=== PATIENT | male | born 1955 | race Caucasian/White ===

== ENCOUNTER → 2020-03-30 08:16 | Outpatient (CLI) | payer OTHER, SELFPAY ==
[2020-03-30 09:41] LABS: Add Manual Diff / Slide Review NO; Basophils Absolute Auto 100 /uL (0-100); Basophils Percent Auto 1.1 % (0-2); Eosinophils Absolute Auto 200 /uL (0-450); Eosinophils Percent Auto 4.3 % (2-4); Hematocrit 41.9 % (41-53); Hemoglobin 13.8 g/dL (13.5-17.5); Lymphocytes Absolute Auto 1100 /uL (1100-4500); Lymphocytes Percent Auto 21.7 % (25-40); Mean Corpuscular HGB Conc 32.9 % (30-36); Mean Corpuscular Hemoglobin 31.4 PG (26-34); Mean Corpuscular Volume 95.4 fL (80-100); Monocytes Absolute Auto 300 /uL (0-900); Monocytes Percent Auto 5.8 % (3-14); Neutrophils Absolute Auto 3400 /uL (1500-7000); Neutrophils Percent Auto 67.1 % (50-75); Platelet Count 174 X10^3/uL (150-400); Red Blood Cell Count 4.39 X10^6/uL (4.5-5.9); Red Cell Distribution Width 12.5 % (11.6-14.8)
[2020-03-30 09:54] LABS: Hemoglobin A1C% w Est Avg Glu 5.5 % (4.0-6.0)
[2020-03-30 09:56] LABS: Alanine Aminotransferase 47 IU/L (<50); Albumin 4.4 g/dL (3.5-5.0); Albumin Globulin Ratio 1.4 (1.0-2.8); Alkaline Phosphatase 66 U/L (38-126); Aspartate Aminotransferase 35 IU/L (17-59); BUN Creatinine Ratio 32.2 (6-22); Bilirubin Total 0.5 mg/dL (0.2-1.3); Blood Urea Nitrogen 29 mg/dL (9-20); Calcium 9.2 mg/dL (8.4-10.2); Carbon Dioxide 32 mmol/L (22-32); Chloride 103 mmol/L (98-107); Cholesterol 181 mg/dL (140-199); Estimated Glomerular Filt Rate > 60.0 mL/min (>60); Globulin 3.1 g/dL (1.7-4.1); Glucose 91 mg/dL (80-110); HDL Cholesterol 64 mg/dL (40-60); HEMOLYSIS 23 (0-50); Potassium 4.3 mmol/L (3.4-5.1); Sodium 137 mmol/L (137-145); Total Protein 7.5 g/dL (6.3-8.2); Triglycerides 410 mg/dL (35-150)
[2020-03-30 10:14] LABS: C-Reactive Protein Quant < 0.5 mg/dL (<1.0)
[2020-03-30 10:25] LABS: Erythrocyte Sedimentation Rate 6 MM/HR (0-15)
[2020-03-30 10:28] LABS: Prostate Specific Antigen Scrn 1.49 ng/mL (0.1-4.0)
[2020-03-30 10:31] LABS: TSH w/ Reflex to FT4 2.09 uIU/mL (0.47-4.68)
== END ==
PROVIDERS: PCP Physician Assistant; Referring Provider Physician Assistant; Visit Provider Physician Assistant
DX: I10 Essential (primary) hypertension (principal); E78.2 Mixed hyperlipidemia; R63.4 Abnormal weight loss; Z12.5 Encounter for screening for malignant neoplasm of prostate
CPT/HCPCS: 36415; 80053; 80061; 83036; 84443; 85025; 85651; 86140; G0103

== ENCOUNTER → 2020-05-18 15:21 | Outpatient (CLI) | payer OTHER, SELFPAY ==
[2020-05-18] MEDS: COVID-19 VACC #1, MRNA(MOD) 100 MCG/0.5 ML VIAL IM (15:24)
== END ==
PROVIDERS: PCP Physician Assistant; Visit Provider Internal Medicine
DX: Z23 Encounter for immunization (principal)
CPT/HCPCS: 0011A; 91301

== ENCOUNTER → 2020-06-15 11:16 | Outpatient (CLI) | payer OTHER, SELFPAY ==
[2020-06-15] MEDS: COVID-19 VACC #2, MRNA(MOD) 100 MCG/0.5 ML VIAL IM (11:20)
== END ==
PROVIDERS: PCP Physician Assistant; Visit Provider Internal Medicine
DX: Z23 Encounter for immunization (principal)
CPT/HCPCS: 0012A; 91301

== ENCOUNTER → 2020-07-21 08:05 | Outpatient (CLI) | payer OTHER, SELFPAY ==
[2020-07-21 08:46] LABS: Add Manual Diff / Slide Review NO; Basophils Absolute Auto 0 /uL (0-100); Basophils Percent Auto 1.2 % (0-2); Eosinophils Absolute Auto 200 /uL (0-450); Eosinophils Percent Auto 4.7 % (2-4); Hematocrit 40.7 % (41-53); Hemoglobin 13.6 g/dL (13.5-17.5); Lymphocytes Absolute Auto 800 /uL (1100-4500); Lymphocytes Percent Auto 20.8 % (25-40); Mean Corpuscular HGB Conc 33.5 % (30-36); Mean Corpuscular Hemoglobin 31.9 PG (26-34); Mean Corpuscular Volume 95.2 fL (80-100); Monocytes Absolute Auto 300 /uL (0-900); Monocytes Percent Auto 7.3 % (3-14); Neutrophils Absolute Auto 2700 /uL (1500-7000); Platelet Count 144 X10^3/uL (150-400); Red Blood Cell Count 4.27 X10^6/uL (4.5-5.9); Red Cell Distribution Width 12.8 % (11.6-14.8)
[2020-07-21 09:08] LABS: Alanine Aminotransferase 35 IU/L (<50); Albumin 4.2 g/dL (3.5-5.0); Albumin Globulin Ratio 1.6 (1.0-2.8); Alkaline Phosphatase 61 U/L (38-126); Aspartate Aminotransferase 33 IU/L (17-59); Bilirubin Total 1.3 mg/dL (0.2-1.3); Blood Urea Nitrogen 21 mg/dL (9-20); Calcium 9.7 mg/dL (8.4-10.2); Carbon Dioxide 30 mmol/L (22-32); Chloride 101 mmol/L (98-107); Cholesterol 139 mg/dL (140-199); Estimated Glomerular Filt Rate > 60.0 mL/min (>60); Globulin 2.7 g/dL (1.7-4.1); Glucose 90 mg/dL (80-110); HDL Cholesterol 92 mg/dL (40-60); HEMOLYSIS < 15 (0-50); LDL Cholesterol Calculated 29 mg/dL (<100); Potassium 4.6 mmol/L (3.4-5.1); Sodium 137 mmol/L (137-145); Total Protein 6.9 g/dL (6.3-8.2); Triglycerides 91 mg/dL (35-150)
== END ==
PROVIDERS: PCP Physician Assistant; Referring Provider Physician Assistant; Visit Provider Physician Assistant
DX: E78.2 Mixed hyperlipidemia (principal); N40.1 Benign prostatic hyperplasia with lower urinary tract symptoms
CPT/HCPCS: 36415; 80053; 80061; 85025

== ENCOUNTER 2020-08-04 09:56 | Emergency (ER) | payer OTHER, SELFPAY ==
[2020-08-04 10:08] VITALS: BP 171/91; PULSE 74; RESP 16; TEMP 36.9; O2SAT 99
[2020-08-04] MEDS: KETOROLAC 30 MG/ML VIAL 15 MG IV (10:16)
[2020-08-04] MEDS: SODIUM CHLORIDE 0.9% 1,000 ML 1000 ML IV (10:16)
[2020-08-04] MEDS: ONDANSETRON 4 MG/2 ML INJ IV (10:16)
--- NOTE | 2020-08-04 10:29 | DI.CT.S_ITS ---
PROCEDURE: CT KIDNEY URETER BLADDER (KUB) INDICATIONS: RLQ and R flank colic type pain, ? stone TECHNIQUE: Axial sections were acquired from the lung bases to the pubic symphysis. Coronal and sagittal reformats were performed. For radiation dose reduction, the following was used: automated exposure control, adjustment of mA and/or kV according to patient size. COMPARISON: None. FINDINGS: Image quality: Excellent. Lung bases: Unremarkable. Heart: No significant findings. URINARY: Right Kidney: Mild hydronephrosis. No additional kidney stones. Right Ureter: Calculus adjacent to the right UVJ measuring 0.2 cm, (2/). Mild hydroureter. Left Kidney: Tiny nonobstructing mid left kidney stone. Left Ureter: No hydroureter. Bladder: Normal wall thickness. ABDOMEN: Liver: Benign cysts. Gallbladder: Unremarkable. Biliary ducts: Unremarkable. Pancreas: Unremarkable. Spleen: Unremarkable. Adrenal Glands: Unremarkable. Stomach and Bowel: Stomach, small bowel loops, and colon are unremarkable. Peritoneum: No abnormal intraperitoneal fluid. No free air. Ventral Wall: No hernia. Abdominal Nodes: No enlarged retroperitoneal or mesenteric lymph nodes. Vessels: Aorta and inferior vena cava are normal in size. Moderate calcified plaque. PELVIS: Pelvic Organs: Unremarkable. Pelvic Nodes: Unremarkable. Miscellaneous: Question of small fat containing inguinal hernias. Bones: Unremarkable. IMPRESSION: 1. Right UVJ calculus measuring 0.2 cm which appears to be passing into the urinary bladder. Mild right hydroureteronephrosis. 2. Additional punctate nonobstructing left kidney stone. Dictated by: Jabier Jones M.D. on 08/04/2020 at 11:14 Approved by: Jabier Jones M.D. on 08/04/2020 at 11:20
--- NOTE | 2020-08-04 10:30 | ED.ABDPAIN ---
HPI - Abdominal Pain General Chief Complaint: Abdominal Pain Stated Complaint: pain in lower right abd Time Seen by Provider: 08/04/20 10:07 Source: patient Mode of arrival: Ambulatory Limitations: no limitations History of Present Illness HPI narrative: 64-year-old gentleman with a history of hypertension, hyperlipidemia and BPH presents with acute onset right lower quadrant/ right flank pain. He was in his usual state of excellent health without any fevers, cough, chills, abdominal pain, constipation, vomiting, diarrhea, palpitations, cough or chest pain. When he awoke this morning he was doing well for the 1st half an hour so and then noted severe pain in the right flank right lower quadrant that has been waxing and waning over the course of the morning from mild to some of the worst pain he has experienced in his life. At the peaks he is nauseated but has not actually vomited. He has no prior history of kidney stones. Current medications include hydrochlorothiazide/ lisinopril, a statin and Flomax. Related Data Home Medications Medication Instructions Recorded Confirmed atorvastatin 40 mg PO DAILY 08/04/20 08/04/20 losartan-hydrochlorothiazide 1 tab PO QAM 08/04/20 08/04/20 tamsulosin 0.8 mg PO DAILY 08/04/20 08/04/20 Previous Rx's Medication Instructions Recorded oxycodone-acetaminophen 1 tab PO Q6H PRN 5 Days #14 tab 08/04/20 Allergies Allergy/AdvReac Type Severity Reaction Status Date / Time No Known Drug Allergies Allergy Verified 08/04/20 10:15 Review of Systems Review of Systems Narrative: Remainder of complete review of systems is otherwise unremarkable except for that included in the HPI. Patient History Medical History (Updated 08/04/20 @ 12:24 by Izzy Maier MD) BPH (benign prostatic hyperplasia) Hyperlipidemia Hypertension Social History Smoking Status: Never smoker Smoking Status: Never smoker alcohol intake frequency: 0-2 drinks per day Substance Use Type: does not use Exam Narrative Exam Narrative: General: Healthy appearing, in no acute distress. Able to give a complete and coherent history. Well-nourished well-developed HEENT: Moist mucous membranes, normal sclera with reactive pupils, Respiratory: Lungs are clear to auscultation, no wheezing no rales no rhonchi. Full and symmetrical air movement Cardiac: Regular rate and rhythm no murmurs no bruits Abdomen: Soft, nontender, good bowel tones, no flank pain Skin: Warm and dry, no rashes Neurologic: Grossly neurologically intact with no obvious asymmetries or abnormalities Extremities: No trauma, well perfused Psych: Cooperative, appropriate insight and affect Initial Vital Signs Initial Vital Signs: Vital Signs Temperature 98.4 F 08/04/20 10:08 Pulse Rate 74 08/04/20 10:08 Respiratory Rate 16 08/04/20 10:08 Blood Pressure 171/91 H 08/04/20 10:08 Pulse Oximetry 99 08/04/20 10:08 Course Orders Ordered: ED Orders 08/04/20 10:04 Complete Blood Count AUTO DIFF Stat Comprehensive Metabolic Panel Stat 08/04/20 10:29 CT kidney ureter bladder (KUB) Stat 08/04/20 11:06 Urine Microscopic Stat Discontinued Medications Sodium Chloride (Normal Saline 0.9%) 1,000 mls @ 1,000 mls/hr IV BOLUS ONE Stop: 08/04/20 11:06 Last Infusion: 08/04/20 11:59 Dose: 0 mls/hr Documented by: Admin: 08/04/20 10:16 Dose: 1,000 mls/hr Documented by: CHEMO Ketorolac Tromethamine (Ketorolac 30 Mg/Ml Vial) 15 mg IV NOW ONE Stop: 08/04/20 10:08 Last Admin: 08/04/20 10:16 Dose: 15 mg Documented by: CHEMO Ondansetron HCl (Ondansetron 4 Mg/2 Ml Inj) 4 mg IV NOW ONE Stop: 08/04/20 10:08 Last Admin: 08/04/20 10:16 Dose: 4 mg Documented by: CHEMO Vital Signs Vital signs: Vital Signs - 8 hr 08/04/20 11:39 08/04/20 12:00 Pulse Rate 59 L 58 L Respiratory Rate 16 Blood Pressure 137/77 Pulse Oximetry 100 100 MDM - Abdominal Pain Medical Records Attestation: I reviewed the patient's medical records. Lab Data Attestation: I reviewed the patient's lab results. Result diagrams: 08/04/20 10:04 08/04/20 10:04 Labs: Lab Results 08/04/20 08/04/20 08/04/20 Range/Units 10:04 10:04 11:06 WBC 7.7 (4.5-11.0) X10^3/uL RBC 4.35 L (4.5-5.9) X10^6/uL Hgb 13.9 (13.5-17.5) g/dL Hct 41.5 (41-53) % MCV 95.4 (80-100) fL MCH 32.1 (26-34) PG MCHC 33.6 (30-36) % RDW 13.0 (11.6-14.8) % Plt Count 157 (150-400) X10^3/uL Neut % (Auto) 85.4 H (50-75) % Lymph % (Auto) 8.9 L (25-40) % Lassen % (Auto) 4.7 (3-14) % Eos % (Auto) 0.6 L (2-4) % Baso % (Auto) 0.4 (0-2) % Neut # (Auto) 6600 (1790-9539) /uL Lymph # (Auto) 700 L (4974-1712) /uL Lassen # (Auto) 400 (0-900) /uL Eos # (Auto) 0 (0-450) /uL Baso # (Auto) 0 (0-100) /uL Sodium 137 (137-145) mmol/L Potassium 4.2 (3.4-5.1) mmol/L Chloride 102 (98-107) mmol/L Carbon Dioxide 28 (22-32) mmol/L BUN 26 H (9-20) mg/dL Creatinine 1.18 (0.66-1.25) mg/dL Estimated GFR > 60.0 (>60) mL/min BUN/Creatinine Ratio 22.0 (6-22) Glucose 126 H (80-110) mg/dL Calcium 9.8 (8.4-10.2) mg/dL Total Bilirubin 1.2 (0.2-1.3) mg/dL AST 36 (17-59) IU/L ALT 46 (<50) IU/L Alkaline Phosphatase 58 (38-126) U/L Total Protein 7.3 (6.3-8.2) g/dL Albumin 4.4 (3.5-5.0) g/dL Globulin 2.9 (1.7-4.1) g/dL Albumin/Globulin Ratio 1.5 (1.0-2.8) Urine RBC 1-5/hpf (0-5/HPF) Urine WBC 0-1/hpf (0-5/HPF) Uric Acid Crystals Moderate H (None) Urine Bacteria Occasional (0-1) (None) Ur Culture Indicated? Cult not indicated Point of care testing: Urine Dip Bedside Urine Glucose Negative Bedside Urine Bilirubin - Negative Bedside Urine Ketone - Negative Urine Specific [place] 1.030 Bedside Urine Occult Blood +/- Bedside Urine pH 6.0 Bedside Urine Protein - Negative Bedside Urine Urobilinogen - Negative Bedside Urine Nitrite - Negative Imaging Data CT scan - abdomen/pelvis: Radiologist's Impression: FINDINGS: Image quality: Excellent. Lung bases: Unremarkable. Heart: No significant findings. URINARY: Right Kidney: Mild hydronephrosis. No additional kidney stones. Right Ureter: Calculus adjacent to the right UVJ measuring 0.2 cm, (2/74). Mild hydroureter. Left Kidney: Tiny nonobstructing mid left kidney stone. Left Ureter: No hydroureter. Bladder: Normal wall thickness. ABDOMEN: Liver: Benign cysts. Gallbladder: Unremarkable. Biliary ducts: Unremarkable. Pancreas: Unremarkable. Spleen: Unremarkable. Adrenal Glands: Unremarkable. Stomach and Bowel: Stomach, small bowel loops, and colon are unremarkable. Peritoneum: No abnormal intraperitoneal fluid. No free air. Ventral Wall: No hernia. Abdominal Nodes: No enlarged retroperitoneal or mesenteric lymph nodes. Vessels: Aorta and inferior vena cava are normal in size. Moderate calcified plaque. PELVIS: Pelvic Organs: Unremarkable. Pelvic Nodes: Unremarkable. Miscellaneous: Question of small fat containing inguinal hernias. Bones: Unremarkable. IMPRESSION: 1. Right UVJ calculus measuring 0.2 cm which appears to be passing into the urinary bladder. Mild right hydroureteronephrosis. 2. Additional punctate nonobstructing left kidney stone. Dictated by: Jabier Jones M.D. on 08/04/2020 at 11:14 MDM Narrative Medical decision making narrative: 64-year-old gentleman who presents with acute onset of colicky right lower quadrant pain. Labs reassuring. CT KUB does suggest a 2 mm right UVJ stone. Pain was easily controlled with Toradol in the emergency department. There is no evidence of appendicitis, pyelonephritis, obstruction, renal impairment or additional reason for hospitalization this time. He is counseled regarding nephrolithiasis. He is already on Flomax will have him continue this. He is safe for home discharge Discharge Plan Departure Patient Disposition: Home Clinical Impression: Ureterolithiasis Instructions: DI for Kidney Stones Activity Restrictions/Additional Instructions: Thank you for coming in today you do have a kidney stone that is causing her problems. It is 2mm in size. It is about to drop into your bladder on the CT scan if you do have any further pain it would be appropriate to use 400 mg of ibuprofen (2 [id number] pills) and 1 Tylenol every 6 hours. For severe pain using 2 ibuprofen and 1 Percocet can be helpful. It is not uncommon to have a deep ache from some of the irritation in the ureter as the stone was passing through. This should improve over the next 24-48 hours if you have any new symptoms, fevers or recurrent pain that can not be controlled with medication at home, please return to the ER Prescriptions: New oxycodone-acetaminophen 5-325 mg tablet 1 tab PO Q6H PRN (Reason: pain) 5 Days Qty: 14 RF: 0 No Action atorvastatin 40 mg tablet 40 mg PO DAILY RF: 0 tamsulosin 0.4 mg capsule 0.8 mg PO DAILY RF: 0 losartan-hydrochlorothiazide 100-12.5 mg tablet 1 tab PO QAM RF: 0 Referrals: Jada Levin PA-C [Primary Care Provider] -
[2020-08-04 10:37] LABS: Add Manual Diff / Slide Review NO; Basophils Absolute Auto 0 /uL (0-100); Basophils Percent Auto 0.4 % (0-2); Eosinophils Absolute Auto 0 /uL (0-450); Eosinophils Percent Auto 0.6 % (2-4); Hematocrit 41.5 % (41-53); Hemoglobin 13.9 g/dL (13.5-17.5); Lymphocytes Absolute Auto 700 /uL (1100-4500); Lymphocytes Percent Auto 8.9 % (25-40); Mean Corpuscular HGB Conc 33.6 % (30-36); Mean Corpuscular Hemoglobin 32.1 PG (26-34); Mean Corpuscular Volume 95.4 fL (80-100); Monocytes Absolute Auto 400 /uL (0-900); Monocytes Percent Auto 4.7 % (3-14); Neutrophils Absolute Auto 6600 /uL (1500-7000); Neutrophils Percent Auto 85.4 % (50-75); Platelet Count 157 X10^3/uL (150-400); Red Blood Cell Count 4.35 X10^6/uL (4.5-5.9); White Blood Cell Count 7.7 X10^3/uL (4.5-11.0)
[2020-08-04 10:58] LABS: Alanine Aminotransferase 46 IU/L (<50); Albumin 4.4 g/dL (3.5-5.0); Albumin Globulin Ratio 1.5 (1.0-2.8); Alkaline Phosphatase 58 U/L (38-126); Aspartate Aminotransferase 36 IU/L (17-59); Bilirubin Total 1.2 mg/dL (0.2-1.3); Blood Urea Nitrogen 26 mg/dL (9-20); Calcium 9.8 mg/dL (8.4-10.2); Carbon Dioxide 28 mmol/L (22-32); Chloride 102 mmol/L (98-107); Estimated Glomerular Filt Rate > 60.0 mL/min (>60); Globulin 2.9 g/dL (1.7-4.1); Glucose 126 mg/dL (80-110); HEMOLYSIS < 15 (0-50); Potassium 4.2 mmol/L (3.4-5.1); Sodium 137 mmol/L (137-145); Total Protein 7.3 g/dL (6.3-8.2)
[2020-08-04 11:39] VITALS: PULSE 59; O2SAT 100
[2020-08-04 11:51] LABS: RBC Urine 1-5/HPF (0-5/HPF); WBC Urine 0-1/HPF (0-5/HPF)
[2020-08-04 11:52] LABS: Bacteria Urine Occasional (0-1); Culture Indicated Urine Cult Not Indicated; Uric Acid Crystals Urine Moderate
[2020-08-04 12:00] VITALS: BP 137/77; PULSE 58; RESP 16; O2SAT 100
== END 2020-08-04 12:43 | disposition home or self-care (01) ==
PROVIDERS: Emergency Provider Emergency Medicine; PCP Physician Assistant
DX: N20.1 Calculus of ureter (principal); R11.0 Nausea
CPT/HCPCS: 36415; 74176; 80053; 81003; 81015; 85025; 96361; 96374; 96375; 99284; J1885; J2405

== ENCOUNTER → 2020-08-23 08:53 | Outpatient (CLI) | payer OTHER, SELFPAY ==
[2020-08-23 09:35] LABS: Add Manual Diff / Slide Review NO; Basophils Absolute Auto 0 /uL (0-100); Eosinophils Absolute Auto 200 /uL (0-450); Eosinophils Percent Auto 4.3 % (2-4); Hematocrit 39.1 % (41-53); Hemoglobin 13.3 g/dL (13.5-17.5); Lymphocytes Absolute Auto 900 /uL (1100-4500); Mean Corpuscular Hemoglobin 32.5 PG (26-34); Mean Corpuscular Volume 95.6 fL (80-100); Monocytes Absolute Auto 300 /uL (0-900); Neutrophils Absolute Auto 2800 /uL (1500-7000); Neutrophils Percent Auto 66.7 % (50-75); Platelet Count 142 X10^3/uL (150-400); Red Blood Cell Count 4.09 X10^6/uL (4.5-5.9); Red Cell Distribution Width 12.9 % (11.6-14.8); White Blood Cell Count 4.2 X10^3/uL (4.5-11.0)
== END ==
PROVIDERS: PCP Physician Assistant; Referring Provider Physician Assistant; Visit Provider Physician Assistant
DX: D72.819 Decreased white blood cell count, unspecified (principal)
CPT/HCPCS: 36415; 85025

== ENCOUNTER → 2020-11-27 14:36 | Outpatient (CLI) | payer OTHER, SELFPAY ==
[2020-11-27 18:24] LABS: COVID19 -Nasal RAPID Negative (Negative)
== END ==
PROVIDERS: PCP Physician Assistant; Visit Provider Nurse Practitioner Family
DX: Z20.822 Contact with and (suspected) exposure to COVID-19 (principal); Z01.812 Encounter for preprocedural laboratory examination
CPT/HCPCS: 87635

== ENCOUNTER 2020-11-28 06:48 | Day surgery (SDC) | payer OTHER, SELFPAY ==
--- NOTE | 2020-11-28 | PATH_ITS ---
[facility] Accession Number: [id number] . 01 Material submitted: . PART A: cecum - CECAL COLON POLYP PART B: colon - RANDOM COLON . 02 Diagnosis: A. Cecal Polyp, Biopsy: Tubular adenoma. . B. Random Colon, Biopsies: Colonic mucosa with no diagnostic abnormality. Negative for active, chronic, and microscopic colitis. Negative for dysplasia and malignancy. . MRV 11/30/2020 1138 Local . 02 Electronically signed: . Anshu May MD, PhD, Pathologist NPI- [id number] . 01 Gross description: . Part A: CECAL COLON POLYP: Received in formalin is 1 fragment(s) of shaw, soft tissue measuring 0.6 x 0.4 x 0.2 cm submitted entirely in 1 cassette(s) Part B: RANDOM COLON: Received in formalin are 4 fragment(s) of shaw, soft tissue measuring 0.4 x 0.1 x 0.1 cm to 0.3 x 0.2 x 0.1 cm submitted entirely in 1 cassette(s) /MILKA 11/29/2020 0501 Local . 02 Pathologist provided ICD-10: R19.7, D12.0 . 02 CPT . 879640, 514042 Performed at: 01 [facility] [address], [place], [place] [id number] MD Marshal Perez MD Phone: [phone] Performed at: 02 [facility] [address] [place], [place] [id number] MD Brii Fernando MD Phone: [phone]
[2020-11-28] MEDS: SODIUM CHLORIDE 0.9% 1,000 ML 84 ML IV (07:11)
[2020-11-28 07:18] VITALS: BP 148/83; PULSE 70; RESP 16; TEMP 36.4; O2SAT 100; BMI 23.0
--- NOTE | 2020-11-28 08:02 | PM.HP.1 ---
History of Present Illness History of Present Illness Date Patient Seen: 11/28/20 Time Patient Seen: 08:02 Chief complaint: DX COLONOSCOPY Narrative: I reviewed my note from November 07 no changes. Patient History Medical History Acne Allergies Anxiety and depression (~1984) Asthma BPH (benign prostatic hyperplasia) Carpal tunnel syndrome (~1994) Chicken pox (~1986) Factor V Leiden Gastric ulcer Hyperlipidemia Hypertension Kidney stones (~2020) Mumps Tinnitus (~1994) Surgical History Anesthesia History of hernia repair History of tonsillectomy Family & Social History Family History Mother Lung cancer MVP (mitral valve prolapse) Grandfather History of heart disease Grandmother Cancer Grandmother Cancer Social History: household members spouse Tobacco & Substance use: Smoking Status Never smoker alcohol intake frequency 0-2 drinks per day Substance Use Type does not use Meds Home Medications and Allergies Home Medications Medication Instructions Recorded Confirmed Type atorvastatin 40 mg tablet 40 mg PO DAILY 08/04/20 08/04/20 History losartan 100 1 tab PO QAM 08/04/20 08/04/20 History mg-hydrochlorothiazide 12.5 mg tablet tamsulosin 0.4 mg capsule 0.8 mg PO DAILY 08/04/20 08/04/20 History Allergies Allergy/AdvReac Type Severity Reaction Status Date / Time No Known Drug Allergies Allergy Verified 11/28/20 07:16 Review of Systems Review of Systems ROS: Yes All systems reviewed with the patient and are negative except as otherwise documented Exam Vital Signs (past 8 hours): - 11/28/20 07:18 Temperature 97.6 F Pulse Rate 70 Respiratory Rate 16 Blood Pressure 148/83 H Pulse Oximetry 100 Oxygen Delivery Method Room Air Const General: cooperative and comfortable Orientation: alert HENMT Head: normocephalic Ears: external ears normal Nose: external nose normal Face and sinus: normal facial exam Mouth: oral mucosae normal Eyes General: appearance normal, both eyes and all related structures Neck Neck: normal visual inspection Chest Chest: normal inspection of the chest Resp Effort & Inspection: normal respiratory effort Auscultation: clear to auscultation bilaterally Cardio Rate: regular rate Rhythm: regular rhythm Heart Sounds: no murmurs GI Inspection: normal to inspection Palpation: soft and No tender Auscultation: normal bowel sounds Skin General: no rashes or lesions noted and No jaundice Neuro General: patient alert and moves all extremities Cognition: normal cognition Speech: speech normal Extrem General: no pedal edema Psych Appearance: grossly normal Assessment & Plan Assessment & Plan narrative: Indicated for colon cancer screening but has longstanding diarrhea. Colonoscopy with random biopsies is planned for today. Time Spent With Patient Critical Care time: I spent a total of [] minutes of critical care time on this patient's care today; this time is exclusive of procedural time.
--- NOTE | 2020-11-28 08:03 | PM.PREOP ---
Pre-operative Note COVID-19 COVID-19 status: Negative Result date/Date tested (Pos, Neg/Pending): 11/27/20 Interval Note History & Physical reviewed/Exam performed by Physician: Yes Changes to H&P: No ASA Class (for procedural sedation): II
--- NOTE | 2020-11-28 08:30 | PM.OP.COLON ---
Operative Date/Time/Diagnoses Date of procedure: 11/28/20 Time of procedure: 08:30 Pre-op diagnosis: Indicated for colon cancer screening. Chronic diarrhea. Post-op diagnosis: same Procedure & Clinicians Study performed: Colonoscopy with hot snare polypectomy and biopsies Same procedure as scheduled: Yes Indications: Indicated for colon cancer screening. Patient has chronic diarrhea. Surgeon: Alvin Reed Procedure Notes SCOAP/Timeout: Done Procedure in detail: After the risks and benefits were explained, written and verbal informed consent was obtained. The patient was brought into the procedure room and placed into the left lateral decubitus position. Please see nurse cross tie tram loader notes for sedation details. Digital rectal examination was accomplished. The scope was introduced into the patient and advanced under direct visualization to the cecum as identified by the appendiceal orifice and ileocecal valve. The scope was slowly withdrawn to carefully examine the mucosa for any defects or lesions. Comprehensive imaging was accomplished throughout the rectum including the dentate line. The colon was decompressed, the scope was then removed from the patient who tolerated the procedure well. Bowel prep adequate Adult colonoscope Scope withdrawal time: 13 minutes Sedation minutes: 19 Specimen(s): none sent Complications: none Impression: There was evidence of diverticulosis in the right colon all throughout the ascending. In the cecum there was a sessile perhaps 6 mm polyp removed with hot snare. The terminal ileum was interrogated and appeared visually normal. I did not see any evidence of colitis or proctitis. Random colon biopsies were taken for exclusion of microscopic disease. Grade 1 internal hemorrhoids noted. Endoscopic diagnosis 1. Colon polyp 2. Diverticulosis 3. Grade 1 hemorrhoids Post-procedure Plan for aftercare: 1. Await histopathology 2. Repeat colonoscopy in 5 years if adenomatous features are confirmed. Disposition: PACU
[2020-11-28 08:32] VITALS: BP 114/71; PULSE 79; RESP 13; TEMP 36.3; O2SAT 98
[2020-11-28 08:38] VITALS: BP 104/62; PULSE 64; RESP 14; TEMP 36.3; O2SAT 100
[2020-11-28 08:45] VITALS: BP 119/80; PULSE 87; RESP 14; TEMP 36.2; O2SAT 99
[2020-11-28 08:49] VITALS: BP 123/78; PULSE 80; RESP 14; TEMP 36.2; O2SAT 100
[2020-11-28 09:03] VITALS: BP 124/76; PULSE 63; RESP 14; TEMP 35.9; O2SAT 100
== END 2020-11-28 09:11 | disposition home or self-care (01) ==
PROVIDERS: PCP Physician Assistant; Referring Provider Internal Medicine Gastroenterology; Visit Provider Internal Medicine Gastroenterology
PROC: 0DJD8ZZ Inspection of Lower Intestinal Tract, Via Natural or Artificial Opening Endoscopic (ICD-10-PCS; CPT 45378; principal; 2020-11-28 08:00)
DX: Z12.11 Encounter for screening for malignant neoplasm of colon (principal); K52.9 Noninfective gastroenteritis and colitis, unspecified; I10 Essential (primary) hypertension; E78.00 Pure hypercholesterolemia, unspecified; J45.909 Unspecified asthma, uncomplicated; D68.51 Activated protein C resistance; K57.30 Diverticulosis of large intestine without perforation or abscess without bleeding; K64.0 First degree hemorrhoids; D12.0 Benign neoplasm of cecum
CPT/HCPCS: 45385; 45380; J2704

== ENCOUNTER → 2021-04-05 08:13 | Outpatient (CLI) | payer MEDICARE, SELFPAY ==
[2021-04-05 09:51] LABS: Alanine Aminotransferase 37 IU/L (<50); Albumin 4.3 g/dL (3.5-5.0); Albumin Globulin Ratio 1.7 (1.0-2.8); Alkaline Phosphatase 55 U/L (38-126); Aspartate Aminotransferase 31 IU/L (17-59); BUN Creatinine Ratio 21.3 (6-22); Bilirubin Total 0.9 mg/dL (0.2-1.3); Blood Urea Nitrogen 20 mg/dL (9-20); Calcium 9.6 mg/dL (8.4-10.2); Carbon Dioxide 32 mmol/L (22-32); Chloride 104 mmol/L (98-107); Cholesterol 169 mg/dL (140-199); Estimated Glomerular Filt Rate > 60.0 mL/min (>60); Globulin 2.6 g/dL (1.7-4.1); Glucose 92 mg/dL (80-110); HDL Cholesterol 78 mg/dL (40-60); HEMOLYSIS < 15 (0-50); LDL Cholesterol Calculated 55 mg/dL (<100); Potassium 4.4 mmol/L (3.4-5.1); Sodium 140 mmol/L (137-145); Total Protein 6.9 g/dL (6.3-8.2); Triglycerides 182 mg/dL (35-150)
[2021-04-05 10:20] LABS: Prostate Specific Antigen Scrn 1.06 ng/mL (0.1-4.0)
== END ==
PROVIDERS: PCP Internal Medicine; Referring Provider Internal Medicine; Visit Provider Internal Medicine
DX: E78.5 Hyperlipidemia, unspecified (principal); Z12.5 Encounter for screening for malignant neoplasm of prostate; I10 Essential (primary) hypertension
CPT/HCPCS: 36415; 80053; 80061; G0103

== ENCOUNTER → 2021-10-01 08:26 | Outpatient (CLI) | payer MEDICARE, SELFPAY ==
[2021-10-01 09:28] LABS: Alanine Aminotransferase 30 IU/L (<50); Albumin 4.2 g/dL (3.5-5.0); Albumin Globulin Ratio 1.6 (1.0-2.8); Alkaline Phosphatase 66 U/L (38-126); Aspartate Aminotransferase 27 IU/L (17-59); BUN Creatinine Ratio 22.7 (6-22); Bilirubin Total 0.8 mg/dL (0.2-1.3); Blood Urea Nitrogen 22 mg/dL (9-20); Calcium 9.1 mg/dL (8.4-10.2); Carbon Dioxide 29 mmol/L (22-32); Chloride 103 mmol/L (98-107); Cholesterol 174 mg/dL (140-199); Estimated Glomerular Filt Rate > 60 mL/min (>60); Globulin 2.6 g/dL (1.7-4.1); Glucose 95 mg/dL (80-110); HDL Cholesterol 85 mg/dL (40-60); HEMOLYSIS < 15 (0-50); LDL Cholesterol Calculated 51 mg/dL (<100); Potassium 4.3 mmol/L (3.4-5.1); Sodium 138 mmol/L (137-145); Total Protein 6.8 g/dL (6.3-8.2); Triglycerides 188 mg/dL (35-150)
== END ==
PROVIDERS: PCP Internal Medicine; Referring Provider Internal Medicine; Visit Provider Internal Medicine
DX: I10 Essential (primary) hypertension (principal); E78.2 Mixed hyperlipidemia
CPT/HCPCS: 36415; 80053; 80061

== ENCOUNTER 2021-10-10 17:00 | Emergency (ER) | payer MEDICARE, SELFPAY ==
[2021-10-10] VITALS (17 sets, daily range): BP systolic 134–171; BP diastolic 74–94; PULSE 55–80; RESP 16–18; TEMP 36.6–36.7; O2SAT 99–100; BMI 23.3
--- NOTE | 2021-10-10 18:38 | DI.CT.S_ITS ---
PROCEDURE: CT KIDNEY URETER BLADDER (KUB) INDICATIONS: RLQ pain radiating into back. Hx stones TECHNIQUE: Axial sections were acquired from the lung bases to the pubic symphysis. Coronal and sagittal reformats were performed. For radiation dose reduction, the following was used: automated exposure control, adjustment of mA and/or kV according to patient size. COMPARISON: [facility], CT, CT KIDNEY URETER BLADDER (KUB), 08/04/2020, 10:58. FINDINGS: Image quality: Excellent. Lung bases: Lung bases are clear. Heart: No significant findings. URINARY: Right Kidney: There is mild-moderate right hydronephrosis with associated perinephric stranding secondary to obstructing 2 mm distal right ureteral stone. Right Ureter: There is mild right hydroureter and right periureteral stranding secondary to a 2 mm distal right ureteral stone. Left Kidney: Redemonstration of tiny punctate 1 mm nonobstructing left renal stone. No left-sided hydronephrosis. No perinephric stranding. Left Ureter: No hydroureter or periureteral stranding. No ureteral stone. Bladder: Normal wall thickness. No stones. ABDOMEN: Liver: Unremarkable. Stable hepatic hypodensity in the posterior right hepatic lobe likely representing a cyst. Gallbladder: Unremarkable. Biliary ducts: Unremarkable. Pancreas: Unremarkable. Spleen: Unremarkable. Adrenal Glands: Unremarkable. Stomach and Bowel: Stomach, small bowel loops, and colon are unremarkable. Peritoneum: No abnormal intraperitoneal fluid. No free air. Ventral Wall: No hernia. Abdominal Nodes: No enlarged retroperitoneal or mesenteric lymph nodes. Vessels: Aorta and inferior vena cava are normal in size. PELVIS: Pelvic Organs: Unremarkable. Pelvic Nodes: Unremarkable. Miscellaneous: Small fat containing bilateral inguinal hernias without acute inflammation. Bones:No acute vertebral body compression fractures. Multilevel spondylitic changes throughout the imaged spine. No suspicious osseous lesions. IMPRESSION: 1. Obstructing 2 mm distal right ureteral stone with associated mild-moderate right hydroureteronephrosis and associated inflammatory stranding. Recommend correlating for possible concurrent infectious uropathy. 2. Redemonstration nonobstructing punctate left renal stone. Dictated by: Cory Rowell M.D. on 10/10/2021 at 19:23 Approved by: Cory Rowell M.D. on 10/10/2021 at 19:29
[2021-10-10 19:17] LABS: RBC Urine >100/HPF (0-5/HPF); Squamous Epithelial Cell Urine 0-1 /HPF (0-5/HPF); WBC Urine 1-5/HPF (0-5/HPF)
[2021-10-10 19:18] LABS: Bacteria Urine Occasional (0-1); Culture Indicated Urine Cult Not Indicated; Uric Acid Crystals Urine Moderate
--- NOTE | 2021-10-10 22:32 | ED.ABDPAIN ---
HPI - Abdominal Pain General Chief Complaint: Abdominal Pain Stated Complaint: lower right abd pain, moves to his back Time Seen by Provider: 10/10/21 22:25 Mode of arrival: Family Vehicle History of Present Illness HPI narrative: Patient here for right flank right lower abdominal pain that started earlier this morning has been constant and waxing and waning. Nausea but no vomiting. Has had chills. No fever. No testicular pain. Patient states has history of kidney stones in the past 1 time. No surgeries for it. Patient drove self here. At this time pain-free. Related Data Home Medications Medication Instructions Recorded Confirmed albuterol sulfate 90 mcg/actuation 2 puff inhalation Q6H PRN 12/08/20 10/08/21 aerosol inhaler Previous Rx's Medication Instructions Recorded losartan 100 1 tab PO DAILY #90 tabs 12/20/20 mg-hydrochlorothiazide 12.5 mg tablet tamsulosin 0.4 mg capsule 0.8 mg PO DAILY #180 caps 08/27/21 atorvastatin 40 mg tablet 40 mg PO DAILY #90 tabs 09/17/21 alprazolam 0.5 mg tablet 0.5 mg PO TID PRN anxiety #30 tabs 10/08/21 ondansetron 4 mg disintegrating 4 mg PO Q8H PRN nausea and 10/10/21 tablet vomiting #10 tabs Allergies Allergy/AdvReac Type Severity Reaction Status Date / Time No Known Drug Allergies Allergy Verified 10/10/21 17:31 Review of Systems Review of Systems Narrative: GENERAL: Positive chills, negative fatigue, malaise, fever, sweats. HEENT: Denies sinus pain, ear pain, sore throat RESPIRATORY: Denies dyspnea, cough CARDIOVASCULAR: Denies chest pain, palpitations GASTROINTESTINAL: Positive flank pain and nausea, negative vomiting, positive abdominal pain : Denies dysuria, frequency, hematuria MUSCULOSKELETAL: denies muscle or bony pain SKIN: Denies rash, skin lesions NEUROLOGIC: Denies weakness, numbness ROS Unobtainable: All systems reviewed & are unremarkable except as noted in HPI and below Patient History Medical History Acne Allergies Anxiety and depression (~1984) Asthma BPH w urinary obs/LUTS Carpal tunnel syndrome (~1994) Chronic diarrhea Factor V Leiden Gastric ulcer History of adenomatous polyp of colon Hyperlipidemia Hypertension Kidney stones (~2020) Tinnitus (~1994) Surgical History Anesthesia History of hernia repair History of tonsillectomy Family History Mother Lung cancer MVP (mitral valve prolapse) Grandfather History of heart disease Grandmother Cancer Grandmother Cancer Social History household members: spouse Smoking Status: Never smoker Smoking Status: Never smoker alcohol intake frequency: 0-2 drinks per day Substance Use Type: does not use Exam Narrative Exam Narrative: GENERAL: in no distress, not toxic not dyspneic HEAD: Normocephalic. EYES: Pupils equal round No scleral icterus. ENT: Mucous membranes moist. NECK: Trachea midline. CARDIOVASCULAR: Regular rate and rhythm without murmurs RESPIRATORY: Clear to auscultation. Breath sounds equal bilaterally. No wheezes, rales, or rhonchi. GASTROINTESTINAL: Abdomen soft, non-tender EXTREMITIES: No gross deformities. BACK: No flank tenderness. NEURO: AOx4. SKIN: Warm and dry PSYCH: Not anxious, is cooperative Initial Vital Signs Initial Vital Signs: Vital Signs Temperature 98.1 F 10/10/21 17:28 Pulse Rate 75 10/10/21 17:28 Respiratory Rate 16 10/10/21 17:28 Blood Pressure 153/78 H 10/10/21 17:28 Pulse Oximetry 99 10/10/21 17:28 Oxygen Delivery Method 10/10/21 17:28 Course Course Course Narrative: No new issues during course of stay Orders Ordered: ED Orders 10/10/21 18:38 CT kidney ureter bladder (KUB) Stat 10/10/21 18:47 Urine Microscopic Stat 10/10/21 22:40 Complete Blood Count AUTO DIFF Stat Comprehensive Metabolic Panel Stat Discontinued Medications Sodium Chloride (Normal Saline 0.9%) 1,000 mls @ 1,000 mls/hr IV BOLUS ONE Stop: 10/10/21 23:30 Last Infusion: 10/10/21 23:42 Dose: 0 mls/hr Documented By: Admin: 10/10/21 22:43 Dose: 1,000 mls/hr Documented By: ANDERSON Ketorolac Tromethamine (Ketorolac 30 Mg/Ml Vial) 15 mg IV NOW ONE Stop: 10/10/21 22:32 Last Admin: 10/10/21 22:42 Dose: 15 mg Documented By: ANDERSON Ondansetron HCl (Ondansetron 4 Mg/2 Ml Inj) 4 mg IV NOW ONE Stop: 10/10/21 22:32 Last Admin: 10/10/21 22:42 Dose: 4 mg Documented By: ANDERSON Ondansetron HCl (Ondansetron 4 Mg Odt Prepack) 1 bottle MISC SEEINSTR ONE Stop: 10/10/21 22:44 Last Admin: 10/10/21 23:42 Dose: 1 bottle Documented By: WILLIAM Tamsulosin HCl (Tamsulosin 0.4 Mg Capsule) 0.4 mg PO NOW ONE Stop: 10/10/21 22:32 Last Admin: 10/10/21 22:43 Dose: 0.4 mg Documented By: ANDERSON Reevaluation(s) Reevaluation #1: Reviewed results with patient. At the same pain-free. Does agree with blood work and fluids and Flomax and Toradol Time: 22:34 Reevaluation #2: Pain-free no nausea time of discharge. Patient desires discharge home. Time: 23:38 Vital Signs Vital signs: Vital Signs - 8 hr 10/10/21 19:48 10/10/21 20:06 10/10/21 19:45 Temperature 97.9 F Pulse Rate 65 64 Respiratory Rate 18 Blood Pressure 162/81 H Pulse Oximetry 100 100 Oxygen Delivery Method Room Air 10/10/21 19:46 10/10/21 19:46 10/10/21 20:00 Temperature Pulse Rate 67 Respiratory Rate Blood Pressure 162/81 H 144/80 H Pulse Oximetry 100 Oxygen Delivery Method 10/10/21 20:00 10/10/21 20:30 10/10/21 20:30 Temperature Pulse Rate 80 78 Respiratory Rate Blood Pressure 134/80 Pulse Oximetry 100 99 Oxygen Delivery Method 10/10/21 21:00 10/10/21 21:00 10/10/21 21:30 Temperature Pulse Rate 69 Respiratory Rate Blood Pressure 165/92 H 156/87 H Pulse Oximetry 99 Oxygen Delivery Method 10/10/21 21:30 10/10/21 22:00 10/10/21 22:00 Temperature Pulse Rate 61 66 Respiratory Rate Blood Pressure 160/82 H Pulse Oximetry 100 100 Oxygen Delivery Method 10/10/21 22:30 10/10/21 22:33 10/10/21 22:33 Temperature Pulse Rate 68 60 Respiratory Rate Blood Pressure 171/94 H Pulse Oximetry 100 99 Oxygen Delivery Method 10/10/21 22:48 10/10/21 23:00 10/10/21 23:01 Temperature Pulse Rate 55 L Respiratory Rate 18 Blood Pressure 152/74 H Pulse Oximetry 100 Oxygen Delivery Method 10/10/21 23:01 10/10/21 23:30 10/10/21 23:31 Temperature Pulse Rate 56 L 65 Respiratory Rate Blood Pressure 147/90 H Pulse Oximetry 100 100 Oxygen Delivery Method 10/10/21 23:31 Temperature Pulse Rate 60 Respiratory Rate Blood Pressure Pulse Oximetry 100 Oxygen Delivery Method MDM - Abdominal Pain Differential Diagnosis Differential diagnosis: Likely abdominal pain, acute appendicitis, calculus of kidney and small bowel obstruction Lab Data Result diagrams: 10/10/21 22:40 10/10/21 22:40 Labs: Lab Results 10/10/21 10/10/21 10/10/21 Range/Units 18:47 22:40 22:40 WBC 8.8 (4.5-11.0) X10^3/uL RBC 4.35 L (4.5-5.9) X10^6/uL Hgb 14.1 (13.5-17.5) g/dL Hct 40.8 L (41-53) % MCV 93.6 (80-100) fL MCH 32.4 (26-34) PG MCHC 34.6 (30-36) % RDW 13.1 (11.6-14.8) % Plt Count 155 (150-400) X10^3/uL Neut % (Auto) 83.6 H (50-75) % Lymph % (Auto) 8.4 L (25-40) % [place] % (Auto) 6.6 (3-14) % Eos % (Auto) 1.0 L (2-4) % Baso % (Auto) 0.4 (0-2) % Neut # (Auto) 7400 H (3161-7445) /uL Lymph # (Auto) 700 L (7231-6164) /uL [place] # (Auto) 600 (0-900) /uL Eos # (Auto) 100 (0-450) /uL Baso # (Auto) 0 (0-100) /uL Sodium 137 (137-145) mmol/L Potassium 3.9 (3.4-5.1) mmol/L Chloride 102 (98-107) mmol/L Carbon Dioxide 27 (22-32) mmol/L BUN 25 H (9-20) mg/dL Creatinine 1.36 H (0.66-1.25) mg/dL Estimated GFR 58 L (>60) mL/min BUN/Creatinine Ratio 18.4 (6-22) Glucose 84 (80-110) mg/dL Calcium 8.9 (8.4-10.2) mg/dL Total Bilirubin 0.8 (0.2-1.3) mg/dL AST 28 (17-59) IU/L ALT 36 (<50) IU/L Alkaline Phosphatase 64 (38-126) U/L Total Protein 7.3 (6.3-8.2) g/dL Albumin 4.4 (3.5-5.0) g/dL Globulin 2.9 (1.7-4.1) g/dL Albumin/Globulin Ratio 1.5 (1.0-2.8) Urine RBC >100/hpf H (0-5/HPF) Urine WBC 1-5/hpf (0-5/HPF) Ur Squamous Epith Cells 0-1 /hpf (0-5/HPF) Uric Acid Crystals Moderate H (None) Urine Bacteria Occasional (0-1) (None) Ur Culture Indicated? Cult not indicated Point of care testing: Urine Dip Bedside Urine Glucose Negative Bedside Urine Bilirubin - Negative Bedside Urine Ketone - Negative Urine Specific [place] 1.030 Bedside Urine Occult Blood +++ Bedside Urine pH 5.5 Bedside Urine Protein +/- 15 Bedside Urine Urobilinogen - Negative Bedside Urine Nitrite - Negative Bedside Urine Leukocytes - Negative Esterase Imaging Data CT scan - abdomen/pelvis: Radiologist's Impression: [address] [address] [address] Scan Report Signed Patient: Dale Silveira MR#: [id number] : 1955 Acct:[id number] Age/Sex: 65 / M Date of Service: 10/10/21 Loc: ED Accession Number: [id number] ?? Procedure: CT kidney ureter bladder (KUB) Ordering Provider: Chris Soto MD PROCEDURE:? CT KIDNEY URETER BLADDER (KUB) ? INDICATIONS:? RLQ pain radiating into back. Hx stones ? TECHNIQUE:? Axial sections were acquired from the lung bases to the pubic symphysis.? Coronal and sagittal reformats were performed.? For radiation dose reduction, the following was used: ?automated exposure control, adjustment of mA and/or kV according to patient size.? ? COMPARISON:? [facility], CT, CT KIDNEY URETER BLADDER (KUB), 08/04/2020, 10:58. ? FINDINGS:? Image quality:? Excellent.? ? Lung bases:? Lung bases are clear. Heart:? No significant findings. ? URINARY: Right Kidney:? There is mild-moderate right hydronephrosis with associated perinephric stranding secondary to obstructing 2 mm distal right ureteral stone. Right Ureter:? There is mild right hydroureter and right periureteral stranding secondary to a 2 mm distal right ureteral stone. ? Left Kidney:? Redemonstration of tiny punctate 1 mm nonobstructing left renal stone.? No left-sided hydronephrosis.? No perinephric stranding. Left Ureter:? No hydroureter or periureteral stranding.? No ureteral stone.? ? Bladder:? Normal wall thickness. No stones. ? ? ? ABDOMEN: Liver:? Unremarkable.? Stable hepatic hypodensity in the posterior right hepatic lobe likely representing a cyst. ? Gallbladder:? Unremarkable.? ? Biliary ducts:? Unremarkable.? ? Pancreas:? Unremarkable.? ? Spleen:? Unremarkable.? ? Adrenal Glands:? Unremarkable.? ? ? Stomach and Bowel:? Stomach, small bowel loops, and colon are unremarkable. ? Peritoneum:? No abnormal intraperitoneal fluid.? No free air.? ? Ventral Wall: ? No hernia.? Abdominal Nodes:? No enlarged retroperitoneal or mesenteric lymph nodes.? Vessels:? Aorta and inferior vena cava are normal in size.? ? PELVIS: Pelvic Organs:? Unremarkable.? ? Pelvic Nodes: Unremarkable. Miscellaneous:? Small fat containing bilateral inguinal hernias without acute inflammation.? ? Bones:No acute vertebral body compression fractures. Multilevel spondylitic changes throughout the imaged spine.? No suspicious osseous lesions. ? IMPRESSION:? ? 1. Obstructing 2 mm distal right ureteral stone with associated mild-moderate right hydroureteronephrosis and associated inflammatory stranding.? Recommend correlating for possible concurrent infectious uropathy. ? 2. Redemonstration nonobstructing punctate left renal stone.? Dictated by: Cory Rowell M.D. on 10/10/2021 at 19:23 ? ? Approved by: Cory Rowell M.D. on 10/10/2021 at 19:29 ? MDM Narrative Medical decision making narrative: Appropriate for discharge home and follow up with Urology. Pain is controlled. Reviewed with patient return precautions. Patient desires discharge home. Flomax started here. Patient desires discharge home. Patient does not want prescribed pain medication. He is desires to take ibuprofen. He states last time he was prescribed pain medication oxycodone but he did not take it. He did not want to. No antibiotics at this time. Laboratory studies are reassuring. No fever here. White cell count normal. Urinalysis reassuring as well. Discharge Plan Departure Patient Disposition: Home Clinical Impression: Calculus, ureteral Instructions: DI for Kidney Stones Activity Restrictions/Additional Instructions: Return if worse if any questions or concerns. Please call Urology office in the morning for office recheck within a week. Keep well hydrated. Return if worse if any questions or concerns. May use ibuprofen for pain as you requested. Nausea medication has been provided for you to take home and a prescription as well. Prescriptions: New ondansetron 4 mg tablet,disintegrating 4 mg PO Q8H PRN (Reason: nausea and vomiting) Qty: 10 0RF No Action losartan-hydrochlorothiazide 100-12.5 mg tablet 1 tab PO DAILY Qty: 90 3RF tamsulosin 0.4 mg capsule 0.8 mg PO DAILY Qty: 180 1RF atorvastatin 40 mg tablet 40 mg PO DAILY Qty: 90 3RF albuterol sulfate 90 mcg/actuation HFA aerosol inhaler 2 puff inhalation Q6H PRN alprazolam 0.5 mg tablet 0.5 mg PO TID PRN (Reason: anxiety) Qty: 30 0RF Referrals: Rudy Clemente MD [Primary Care Provider] - Chris Infante MD [Physician] - Visit Report Forms: Patient Portal/API
[2021-10-10] MEDS: KETOROLAC 30 MG/ML VIAL 15 MG IV (22:42)
[2021-10-10] MEDS: ONDANSETRON 4 MG/2 ML INJ IV (22:42)
[2021-10-10] MEDS: SODIUM CHLORIDE 0.9% 1,000 ML 1000 ML IV (22:43)
[2021-10-10] MEDS: TAMSULOSIN 0.4 MG CAPSULE PO (22:43)
[2021-10-10 22:51] LABS: Add Manual Diff / Slide Review NO; Basophils Absolute Auto 0 /uL (0-100); Basophils Percent Auto 0.4 % (0-2); Eosinophils Absolute Auto 100 /uL (0-450); Hematocrit 40.8 % (41-53); Hemoglobin 14.1 g/dL (13.5-17.5); Lymphocytes Absolute Auto 700 /uL (1100-4500); Lymphocytes Percent Auto 8.4 % (25-40); Mean Corpuscular HGB Conc 34.6 % (30-36); Mean Corpuscular Hemoglobin 32.4 PG (26-34); Mean Corpuscular Volume 93.6 fL (80-100); Monocytes Absolute Auto 600 /uL (0-900); Monocytes Percent Auto 6.6 % (3-14); Neutrophils Absolute Auto 7400 /uL (1500-7000); Neutrophils Percent Auto 83.6 % (50-75); Platelet Count 155 X10^3/uL (150-400); Red Blood Cell Count 4.35 X10^6/uL (4.5-5.9); Red Cell Distribution Width 13.1 % (11.6-14.8); White Blood Cell Count 8.8 X10^3/uL (4.5-11.0)
[2021-10-10 23:02] LABS: Alanine Aminotransferase 36 IU/L (<50); Albumin 4.4 g/dL (3.5-5.0); Albumin Globulin Ratio 1.5 (1.0-2.8); Alkaline Phosphatase 64 U/L (38-126); Aspartate Aminotransferase 28 IU/L (17-59); BUN Creatinine Ratio 18.4 (6-22); Bilirubin Total 0.8 mg/dL (0.2-1.3); Blood Urea Nitrogen 25 mg/dL (9-20); Calcium 8.9 mg/dL (8.4-10.2); Carbon Dioxide 27 mmol/L (22-32); Chloride 102 mmol/L (98-107); Estimated Glomerular Filt Rate 58 mL/min (>60); Globulin 2.9 g/dL (1.7-4.1); Glucose 84 mg/dL (80-110); HEMOLYSIS < 15 (0-50); Potassium 3.9 mmol/L (3.4-5.1); Sodium 137 mmol/L (137-145); Total Protein 7.3 g/dL (6.3-8.2)
[2021-10-10] MEDS: ONDANSETRON 4 MG ODT PREPACK 1 BOTTLE MISC (23:42)
== END 2021-10-10 23:49 | disposition home or self-care (01) ==
PROVIDERS: Emergency Medicine; Emergency Provider Emergency Medicine; PCP Internal Medicine
DX: N20.1 Calculus of ureter (principal)
CPT/HCPCS: 36415; 74176; 80053; 81003; 81015; 85025; 96361; 96374; 96375; 99284; J1885; J2405

== ENCOUNTER → 2022-11-26 08:18 | Outpatient (CLI) | payer MEDICARE, SELFPAY ==
[2022-11-26 09:36] LABS: HEMOLYSIS < 15 (0-50)
[2022-11-26 09:41] LABS: Alanine Aminotransferase 37 IU/L (<50); Albumin 4.3 g/dL (3.5-5.0); Albumin Globulin Ratio 1.6 (1.0-2.8); Alkaline Phosphatase 59 U/L (38-126); Aspartate Aminotransferase 29 IU/L (17-59); BUN Creatinine Ratio 22.5 (6-22); Bilirubin Total 0.7 mg/dL (0.2-1.3); Blood Urea Nitrogen 23 mg/dL (9-20); Calcium 9.7 mg/dL (8.4-10.2); Carbon Dioxide 29 mmol/L (22-32); Chloride 101 mmol/L (98-107); Cholesterol 190 mg/dL (140-199); Estimated Glomerular Filt Rate > 60 mL/min (>60); Globulin 2.7 g/dL (1.7-4.1); Glucose 96 mg/dL (80-110); HDL Cholesterol 73 mg/dL (40-60); LDL Cholesterol Calculated 69 mg/dL (<100); Potassium 4.2 mmol/L (3.4-5.1); Sodium 137 mmol/L (137-145); Triglycerides 239 mg/dL (35-150)
[2022-11-26 10:14] LABS: Prostate Specific Antigen Scrn 1.49 ng/mL (0.1-4.0)
== END ==
PROVIDERS: PCP Internal Medicine; Referring Provider Internal Medicine; Visit Provider Internal Medicine
DX: I10 Essential (primary) hypertension (principal); Z12.5 Encounter for screening for malignant neoplasm of prostate; E78.2 Mixed hyperlipidemia
CPT/HCPCS: 36415; 80053; 80061; G0103

== ENCOUNTER → 2023-12-08 08:00 | Outpatient (CLI) | payer MEDICARE, SELFPAY ==
[2023-12-08 09:08] LABS: Alanine Aminotransferase 35 IU/L (<50); Albumin 4.4 g/dL (3.5-5.0); Albumin Globulin Ratio 1.8 (1.0-2.8); Alkaline Phosphatase 59 U/L (38-126); Aspartate Aminotransferase 28 IU/L (17-59); BUN Creatinine Ratio 19.8 (6-22); Bilirubin Total 1.1 mg/dL (0.2-1.3); Blood Urea Nitrogen 21 mg/dL (9-20); Calcium 9.8 mg/dL (8.4-10.2); Carbon Dioxide 30 mmol/L (22-32); Chloride 101 mmol/L (98-107); Cholesterol 158 mg/dL (140-199); Estimated Glomerular Filt Rate > 60 mL/min (>60); Globulin 2.4 g/dL (1.7-4.1); Glucose 101 mg/dL (80-110); HDL Cholesterol 81 mg/dL (40-60); HEMOLYSIS < 15 (0-50); LDL Cholesterol Calculated 57 mg/dL (<100); Potassium 4.4 mmol/L (3.4-5.1); Sodium 136 mmol/L (137-145); Total Protein 6.8 g/dL (6.3-8.2); Triglycerides 98 mg/dL (35-150)
[2023-12-08 09:37] LABS: Prostate Specific Antigen Scrn 1.34 ng/mL (0.1-4.0)
== END ==
PROVIDERS: PCP Internal Medicine; Referring Provider Internal Medicine; Visit Provider Internal Medicine
DX: Z12.5 Encounter for screening for malignant neoplasm of prostate (principal); I10 Essential (primary) hypertension; E78.2 Mixed hyperlipidemia
CPT/HCPCS: 36415; 80053; 80061; G0103

== ENCOUNTER → 2024-01-26 16:03 | Outpatient (CLI) | payer MEDICARE, SELFPAY ==
--- NOTE | 2024-01-26 16:05 | DI.RAD.S_ITS ---
PROCEDURE: XR LUMBAR SPINE 2-3V INDICATIONS: left sciatica TECHNIQUE: 3 views of the lumbar spine were acquired. COMPARISON: CT, CT KIDNEY URETER BLADDER (KUB), 10/10/2021, 18:43. FINDINGS: Bones: 5 [id number] vertebrae are present. There is multilevel trace retrolisthesis. Multilevel degenerative disc and foraminal narrowing are present most severe at L5-S1. Anterior osteophytes are present most severe at L4. No vertebral body compression fractures. No suspicious bony lesions. Soft tissues: Overlying bowel gas pattern is normal. No suspicious soft tissue calcifications. IMPRESSION: Degenerative changes most severe at L5-S1. Dictated by: Liza Baker M.D. on 01/27/2024 at 16:07 Approved by: Liza Baker M.D. on 01/27/2024 at 16:07
== END ==
PROVIDERS: PCP Internal Medicine; Referring Provider Internal Medicine; Visit Provider Internal Medicine
DX: M54.32 Sciatica, left side (principal); M47.817 Spondylosis without myelopathy or radiculopathy, lumbosacral region
CPT/HCPCS: 72100

== ENCOUNTER 2024-03-04 15:15 | Outpatient (RCR) | payer MEDICARE, SELFPAY ==
--- NOTE | 2024-02-25 17:00 | PT.OIE ---
Current Diagnoses Stiffness of left hip, not elsewhere classified (02/25/24) Stiffness of other specified joint, not elsewhere classified (02/25/24) Sciatica, left side (02/25/24) Past Medical History (Last Reviewed 12/26/23 @ 14:04 by Rudy Clemente MD) Acne Allergies Anxiety and depression (~1984) Asthma BPH w urinary obs/LUTS Carpal tunnel syndrome (~1994) Chronic diarrhea Depression Factor V Leiden Gastric ulcer Generalized anxiety disorder History of adenomatous polyp of colon Hyperlipidemia Hypertension Kidney stones (~2020) Tinnitus (~1994) Past Surgical History (Last Reviewed 12/26/23 @ 14:04 by Rudy Clemente MD) Anesthesia History of hernia repair History of tonsillectomy [place] teeth removed Visit Care Team Role Provider Type Rudy Clemente MD Attending Provider Physician Family Provider Primary Care Provider Referring Provider Specialty: Internal Medicine Address: [address] [place] [address], [address], [facility] Email: [email or web address] Physical Therapy Initial Evaluation PT-OP-A Visit Information Start: 02/25/24 16:57 Freq: Status: Active Protocol: Document 02/25/24 16:15 DCW (Rec: 02/25/24 17:00 DCW [id number]) Out-Patient Physical Therapy Visit Information Visit Information Visit Type Initial Evaluation Visit Start Time 16:15 Visit Stop Time 17:00 Visit Number 1 Number of CODE CLERK Visits 0 Evaluation Information Evaluation Date 02/25/24 PT-OP-B Current Condition Start: 02/25/24 16:57 Freq: Status: Active Protocol: Document 02/25/24 16:15 DCW (Rec: 02/26/24 12:04 DCW [id number]) Current Condition History of Current Condition Onset Date 15 year history, worsening ~6 months Current Complaints Left posterior hip pain, L LE radicular ache/pain/numbness History of Current Condition Pt is a 68 year old male presenting with a long- standing history of radicular symptoms, which over time have been fairly off and on, however for the last six months, have been fairly consistent. Pt notes that a left posterior hip and left LE ache is constant, and additionally has occasional shoot pain, numbness, or tingling along his left leg. Pain typically bothers him the most when getting up after sitting for an extended perior of time. Pt denies and pain along his low back. Prior Treatments and Tests Lumbar x-ray: IMPRESSION: Degenerative changes most severe at L5-S1. per Liza Baker M.D. on 01/27/2024 Treatment Goals Patient/Caregiver Goals Pt hoping to learn how to use stretching/exercise to mitigate flare-ups, and what to do in hopes to prevent future flare-ups. PT-OP-C Subjective Start: 02/25/24 16:57 Freq: Status: Active Protocol: Document 02/25/24 16:15 DCW (Rec: 02/26/24 10:39 DCW [id number]) OP-PT Subjective Patient Comments Patient Comments It's probably been happening off and on for 15 years, but I just didn't really recognize what was going on. Patient Questionnaires Oswestry Low Back Index Oswestry Score 11/50 = 22% Oswestry Impairment 20 to 39% Impaired (Score 20- 39) PT-OP-F Manual Assessment Start: 02/25/24 16:57 Freq: Status: Active Protocol: Document 02/25/24 16:15 DCW (Rec: 02/26/24 10:39 DCW [id number]) Manual Assessments Soft Tissue Assessment Soft Tissue Mobility Assessment Moderate-severe tone along left piriformis with tenderness to palpation 3/4: wincing and withdraw PT-OP-K Range of Motion Start: 02/25/24 16:57 Freq: Status: Active Protocol: Document 02/25/24 16:15 DCW (Rec: 02/26/24 10:39 DCW [id number]) Lumbar Spine Range of Motion Lumbar Spine Active Degrees Testing Position Standing Flexion 55 Extension 10 Lateral Flexion Left 55 Lateral Flexion Right 59 Comments Lateral flexion measured in cm from fingertips to floor PT-OP-L Special Tests Start: 02/25/24 16:57 Freq: Status: Active Protocol: Document 02/25/24 16:15 DCW (Rec: 02/26/24 10:39 DCW [id number]) Special Tests Lumbar Spine Special Tests Vertical Spine Loading Test Results Negative Straight Leg Raise Test Results Positive L Slump Test Results Negative Compression Test Results Negative A-P Shearing Test Results Negative Hip Special Tests Piriformis Test Results Positive L WHITNEY Test Results Positive L PT-OP-M Strength Start: 02/25/24 16:57 Freq: Status: Active Protocol: Document 02/25/24 16:15 DCW (Rec: 02/26/24 10:39 DCW [id number]) Hip Strength Hip Manual Muscle Testing Right Flexion (L2) 4 Good Abduction 4 Good Adduction 4+ Good+ External Rotation 5 Normal Internal Rotation 5 Normal Comments Increased pain while testing left hip flexion and abduction Left Flexion (L2) 5 Normal Abduction 5 Normal Adduction 5 Normal External Rotation 5 Normal Internal Rotation 5 Normal Knee Strength Knee Manual Muscle Testing Right Flexion (S2) 4 Good Extension (L3) 5 Normal Left Flexion (S2) 4 Good Extension (L3) 5 Normal PT-OP-Q Treatments Start: 02/25/24 16:57 Freq: Status: Active Protocol: Document 02/25/24 16:15 DCW (Rec: 02/25/24 17:00 DCW [id number]) Therapeutic Exercises Supine Exercises Piriformis Supine Exercise Name Piriformis stretch - Figure-4, Knee ot opposite shoulder Side left Sitting Exercises Piriformis stretch Sitting Exercise Name Seated Figure-4 Side left PT-OP-T Assessment and Plan Start: 02/25/24 16:57 Freq: Status: Active Protocol: Document 02/25/24 16:15 DCW (Rec: 02/26/24 13:41 DCW [id number]) Physical Therapy Assessment Rehab Potential Rehabilitation Potential Good Evaluation Complexity Number of Personal Factors/Comorbidities 1-2 Number of Body Systems Impaired 4 or More Clinical Presentation at Evaluation Stable Impairments Impairments Activity Tolerance,Functional Activities,Functional Mobility ,Pain,Soft Tissue Mobility, Strength,Tone Goals Two Impairment Pt presents with mod-severe tone in left piriformis Chcf Goal (LTG) Pt to present with mild tone in left piriformis in order to desplay decreased radicular symptoms and improve functional mobility. LTG Duration 04/24/24 One Impairment Pt does not have an appropriate home exercise program Short Term Goal (STG) Pt to be independent and compliant with an appropriate HEP STG Duration 03/27/24 Assessment Summary Assessment Pt presents with signs and symptoms consistent with referring diagnosis. Pt experiencing significant pain along sciatic nerve, resulting in sensory changes, aching, pain, and decreased motor function. Pt displays significant tone and tenderness in left piriformis, which may indicate potential piriformis syndrome, resulting in sciatic nerve impingement. Pt will likely benefit from skilled therapeutic intervention focusing on stretching/flexibility, strengthening, STM, joint mobilizations, and improving functional mobility. Physical Therapy Plan Frequency and Duration Frequency of Treatment 2x/Week Plan of Care Start Date 02/25/24 Plan of Care End Date 04/24/24 Therapeutic Interventions Therapeutic Interventions Balance Training,Home Exercise Program,Joint Mobilizations, Manual Therapy,Neuromuscular Re-education,Patient/Caregiver Education,Self-Care/Home Management,Soft Tissue Mobilization,Therapeutic Activities,Therapeutic Exercises Modalities Cold Pack/Ice Massage,Electric Stimulation,Hot Packs, Ultrasound Next Visit Focus/Plan Next Note Type Treatment Note Next Visit Plan STM, stretching/flexibility, hip strengthening
--- NOTE | 2024-02-25 17:00 | PT.OPPOC ---
Physical, Occupational & Speech Therapy At [facility] Current Diagnoses Stiffness of left hip, not elsewhere classified (02/25/24) Stiffness of other specified joint, not elsewhere classified (02/25/24) Sciatica, left side (02/25/24) Visit Care Team Role Provider Type Rudy Clemente MD Attending Provider Physician Family Provider Primary Care Provider Referring Provider Specialty: Internal Medicine Address: [address] [place] [address], [address], [facility] Email: [email or web address] Plan Of Care PT-OP-B Current Condition Start: 02/25/24 16:57 Freq: Status: Active Protocol: Document 02/25/24 16:15 DCW (Rec: 02/26/24 12:04 DCW [id number]) Current Condition History of Current Condition Onset Date 15 year history, worsening ~6 months Current Complaints Left posterior hip pain, L LE radicular ache/pain/numbness History of Current Condition Pt is a 68 year old male presenting with a long- standing history of radicular symptoms, which over time have been fairly off and on, however for the last six months, have been fairly consistent. Pt notes that a left posterior hip and left LE ache is constant, and additionally has occasional shoot pain, numbness, or tingling along his left leg. Pain typically bothers him the most when getting up after sitting for an extended perior of time. Pt denies and pain along his low back. Prior Treatments and Tests Lumbar x-ray: IMPRESSION: Degenerative changes most severe at L5-S1. per Liza Baker M.D. on 01/27/2024 Treatment Goals Patient/Caregiver Goals Pt hoping to learn how to use stretching/exercise to mitigate flare-ups, and what to do in hopes to prevent future flare-ups. PT-OP-T Assessment and Plan Start: 02/25/24 16:57 Freq: Status: Active Protocol: Document 02/25/24 16:15 DCW (Rec: 02/26/24 13:41 DCW [id number]) Physical Therapy Assessment Rehab Potential Rehabilitation Potential Good Evaluation Complexity Number of Personal Factors/Comorbidities 1-2 Number of Body Systems Impaired 4 or More Clinical Presentation at Evaluation Stable Impairments Impairments Activity Tolerance,Functional Activities,Functional Mobility ,Pain,Soft Tissue Mobility, Strength,Tone Goals Two Impairment Pt presents with mod-severe tone in left piriformis Pastry Wrapper Goal (LTG) Pt to present with mild tone in left piriformis in order to desplay decreased radicular symptoms and improve functional mobility. LTG Duration 04/24/24 One Impairment Pt does not have an appropriate home exercise program Short Term Goal (STG) Pt to be independent and compliant with an appropriate HEP STG Duration 03/27/24 Assessment Summary Assessment Pt presents with signs and symptoms consistent with referring diagnosis. Pt experiencing significant pain along sciatic nerve, resulting in sensory changes, aching, pain, and decreased motor function. Pt displays significant tone and tenderness in left piriformis, which may indicate potential piriformis syndrome, resulting in sciatic nerve impingement. Pt will likely benefit from skilled therapeutic intervention focusing on stretching/flexibility, strengthening, STM, joint mobilizations, and improving functional mobility. Physical Therapy Plan Frequency and Duration Frequency of Treatment 2x/Week Plan of Care Start Date 02/25/24 Plan of Care End Date 04/24/24 Therapeutic Interventions Therapeutic Interventions Balance Training,Home Exercise Program,Joint Mobilizations, Manual Therapy,Neuromuscular Re-education,Patient/Caregiver Education,Self-Care/Home Management,Soft Tissue Mobilization,Therapeutic Activities,Therapeutic Exercises Modalities Cold Pack/Ice Massage,Electric Stimulation,Hot Packs, Ultrasound Next Visit Focus/Plan Next Note Type Treatment Note Next Visit Plan STM, stretching/flexibility, hip strengthening Plan of Care Dates Plan of Care Start Date 02/25/24 Plan of Care End Date 04/24/24 Electronically Signed by: Donald Brasher, PT 02/26/24 5236 If you are in agreement with this Plan of Care, please return a signed and dated copy. I have reviewed this Plan of Care and certify that the skilled therapy services above are required to meet the patient?s needs. Physician Signature Date Printed Name and Credentials Clinical Instructor Signature Printed Name and Credentials
--- NOTE | 2024-02-26 13:45 | PT.OIE ---
Current Diagnoses Stiffness of left hip, not elsewhere classified (02/25/24) Stiffness of other specified joint, not elsewhere classified (02/25/24) Sciatica, left side (02/25/24) Past Medical History (Last Reviewed 12/26/23 @ 14:04 by Rudy Clemente MD) Acne Allergies Anxiety and depression (~1984) Asthma BPH w urinary obs/LUTS Carpal tunnel syndrome (~1994) Chronic diarrhea Depression Factor V Leiden Gastric ulcer Generalized anxiety disorder History of adenomatous polyp of colon Hyperlipidemia Hypertension Kidney stones (~2020) Tinnitus (~1994) Past Surgical History (Last Reviewed 12/26/23 @ 14:04 by Rudy Clemente MD) Anesthesia History of hernia repair History of tonsillectomy [place] teeth removed Visit Care Team Role Provider Type Rudy Clemente MD Attending Provider Physician Family Provider Primary Care Provider Referring Provider Specialty: Internal Medicine Address: [address] [place] [address], [address], [facility] Email: [email or web address] Physical Therapy Initial Evaluation PT-OP-A Visit Information Start: 02/25/24 16:57 Freq: Status: Active Protocol: Document 02/25/24 16:15 DCW (Rec: 02/25/24 17:00 DCW [id number]) Out-Patient Physical Therapy Visit Information Visit Information Visit Type Initial Evaluation Visit Start Time 16:15 Visit Stop Time 17:00 Visit Number 1 Number of BOARD CERTIFIED FAMILY PHYSICIAN Visits 0 Evaluation Information Evaluation Date 02/25/24 PT-OP-B Current Condition Start: 02/25/24 16:57 Freq: Status: Active Protocol: Document 02/25/24 16:15 DCW (Rec: 02/26/24 12:04 DCW [id number]) Current Condition History of Current Condition Onset Date 15 year history, worsening ~6 months Current Complaints Left posterior hip pain, L LE radicular ache/pain/numbness History of Current Condition Pt is a 68 year old male presenting with a long- standing history of radicular symptoms, which over time have been fairly off and on, however for the last six months, have been fairly consistent. Pt notes that a left posterior hip and left LE ache is constant, and additionally has occasional shoot pain, numbness, or tingling along his left leg. Pain typically bothers him the most when getting up after sitting for an extended perior of time. Pt denies and pain along his low back. Prior Treatments and Tests Lumbar x-ray: IMPRESSION: Degenerative changes most severe at L5-S1. per Liza Baker M.D. on 01/27/2024 Treatment Goals Patient/Caregiver Goals Pt hoping to learn how to use stretching/exercise to mitigate flare-ups, and what to do in hopes to prevent future flare-ups. PT-OP-C Subjective Start: 02/25/24 16:57 Freq: Status: Active Protocol: Document 02/25/24 16:15 DCW (Rec: 02/26/24 10:39 DCW [id number]) OP-PT Subjective Patient Comments Patient Comments It's probably been happening off and on for 15 years, but I just didn't really recognize what was going on. Patient Questionnaires Oswestry Low Back Index Oswestry Score 11/50 = 22% Oswestry Impairment 20 to 39% Impaired (Score 20- 39) PT-OP-F Manual Assessment Start: 02/25/24 16:57 Freq: Status: Active Protocol: Document 02/25/24 16:15 DCW (Rec: 02/26/24 10:39 DCW [id number]) Manual Assessments Soft Tissue Assessment Soft Tissue Mobility Assessment Moderate-severe tone along left piriformis with tenderness to palpation 3/4: wincing and withdraw PT-OP-K Range of Motion Start: 02/25/24 16:57 Freq: Status: Active Protocol: Document 02/25/24 16:15 DCW (Rec: 02/26/24 10:39 DCW [id number]) Lumbar Spine Range of Motion Lumbar Spine Active Degrees Testing Position Standing Flexion 55 Extension 10 Lateral Flexion Left 55 Lateral Flexion Right 59 Comments Lateral flexion measured in cm from fingertips to floor PT-OP-L Special Tests Start: 02/25/24 16:57 Freq: Status: Active Protocol: Document 02/25/24 16:15 DCW (Rec: 02/26/24 10:39 DCW [id number]) Special Tests Lumbar Spine Special Tests Vertical Spine Loading Test Results Negative Straight Leg Raise Test Results Positive L Slump Test Results Negative Compression Test Results Negative A-P Shearing Test Results Negative Hip Special Tests Piriformis Test Results Positive L WHITNEY Test Results Positive L PT-OP-M Strength Start: 02/25/24 16:57 Freq: Status: Active Protocol: Document 02/25/24 16:15 DCW (Rec: 02/26/24 10:39 DCW [id number]) Hip Strength Hip Manual Muscle Testing Right Flexion (L2) 4 Good Abduction 4 Good Adduction 4+ Good+ External Rotation 5 Normal Internal Rotation 5 Normal Comments Increased pain while testing left hip flexion and abduction Left Flexion (L2) 5 Normal Abduction 5 Normal Adduction 5 Normal External Rotation 5 Normal Internal Rotation 5 Normal Knee Strength Knee Manual Muscle Testing Right Flexion (S2) 4 Good Extension (L3) 5 Normal Left Flexion (S2) 4 Good Extension (L3) 5 Normal PT-OP-Q Treatments Start: 02/25/24 16:57 Freq: Status: Active Protocol: Document 02/25/24 16:15 DCW (Rec: 02/25/24 17:00 DCW [id number]) Therapeutic Exercises Supine Exercises Piriformis Supine Exercise Name Piriformis stretch - Figure-4, Knee ot opposite shoulder Side left Sitting Exercises Piriformis stretch Sitting Exercise Name Seated Figure-4 Side left PT-OP-T Assessment and Plan Start: 02/25/24 16:57 Freq: Status: Active Protocol: Document 02/25/24 16:15 DCW (Rec: 02/26/24 13:41 DCW [id number]) Physical Therapy Assessment Rehab Potential Rehabilitation Potential Good Evaluation Complexity Number of Personal Factors/Comorbidities 1-2 Number of Body Systems Impaired 4 or More Clinical Presentation at Evaluation Stable Impairments Impairments Activity Tolerance,Functional Activities,Functional Mobility ,Pain,Soft Tissue Mobility, Strength,Tone Goals Two Impairment Pt presents with mod-severe tone in left piriformis Jail Goal (LTG) Pt to present with mild tone in left piriformis in order to desplay decreased radicular symptoms and improve functional mobility. LTG Duration 04/24/24 One Impairment Pt does not have an appropriate home exercise program Short Term Goal (STG) Pt to be independent and compliant with an appropriate HEP STG Duration 03/27/24 Assessment Summary Assessment Pt presents with signs and symptoms consistent with referring diagnosis. Pt experiencing significant pain along sciatic nerve, resulting in sensory changes, aching, pain, and decreased motor function. Pt displays significant tone and tenderness in left piriformis, which may indicate potential piriformis syndrome, resulting in sciatic nerve impingement. Pt will likely benefit from skilled therapeutic intervention focusing on stretching/flexibility, strengthening, STM, joint mobilizations, and improving functional mobility. Physical Therapy Plan Frequency and Duration Frequency of Treatment 2x/Week Plan of Care Start Date 02/25/24 Plan of Care End Date 04/24/24 Therapeutic Interventions Therapeutic Interventions Balance Training,Home Exercise Program,Joint Mobilizations, Manual Therapy,Neuromuscular Re-education,Patient/Caregiver Education,Self-Care/Home Management,Soft Tissue Mobilization,Therapeutic Activities,Therapeutic Exercises Modalities Cold Pack/Ice Massage,Electric Stimulation,Hot Packs, Ultrasound Next Visit Focus/Plan Next Note Type Treatment Note Next Visit Plan STM, stretching/flexibility, hip strengthening
--- NOTE | 2024-02-27 13:49 | PT.OTN ---
Current Diagnoses Stiffness of left hip, not elsewhere classified (02/27/24) Stiffness of other specified joint, not elsewhere classified (02/27/24) Sciatica, left side (02/27/24) Physical Therapy Treatment Note PT-OP-A Visit Information Start: 02/25/24 16:57 Freq: Status: Active Protocol: Document 02/27/24 13:03 SP (Rec: 02/27/24 13:51 SP [id number]) Out-Patient Physical Therapy Visit Information Visit Information Visit Type Treatment Note Visit Start Time 13:03 Visit Stop Time 13:49 Visit Number 2 Number of GOLD RECLAIMER Visits 1 Evaluation Information Evaluation Date 02/25/24 PT-OP-B Current Condition Start: 02/25/24 16:57 Freq: Status: Active Protocol: Document 02/25/24 16:15 DCW (Rec: 02/26/24 12:04 DCW [id number]) Current Condition History of Current Condition Onset Date 15 year history, worsening ~6 months Current Complaints Left posterior hip pain, L LE radicular ache/pain/numbness History of Current Condition Pt is a 68 year old male presenting with a long- standing history of radicular symptoms, which over time have been fairly off and on, however for the last six months, have been fairly consistent. Pt notes that a left posterior hip and left LE ache is constant, and additionally has occasional shoot pain, numbness, or tingling along his left leg. Pain typically bothers him the most when getting up after sitting for an extended perior of time. Pt denies and pain along his low back. Prior Treatments and Tests Lumbar x-ray: IMPRESSION: Degenerative changes most severe at L5-S1. per Liza Baker M.D. on 01/27/2024 Treatment Goals Patient/Caregiver Goals Pt hoping to learn how to use stretching/exercise to mitigate flare-ups, and what to do in hopes to prevent future flare-ups. PT-OP-C Subjective Start: 02/25/24 16:57 Freq: Status: Active Protocol: Document 02/27/24 13:03 SP (Rec: 02/27/24 13:51 SP [id number]) OP-PT Subjective Patient Comments Patient Comments He reports occasionally the Knee or hip will lock and can' t feel foot on floor. And L hip pain is constant and intense at times. COmpliant with stretches given. PT-OP-F Manual Assessment Start: 02/25/24 16:57 Freq: Status: Active Protocol: Document 02/25/24 16:15 DCW (Rec: 02/26/24 10:39 DCW [id number]) Manual Assessments Soft Tissue Assessment Soft Tissue Mobility Assessment Moderate-severe tone along left piriformis with tenderness to palpation 3/4: wincing and withdraw PT-OP-K Range of Motion Start: 02/25/24 16:57 Freq: Status: Active Protocol: Document 02/25/24 16:15 DCW (Rec: 02/26/24 10:39 DCW [id number]) Lumbar Spine Range of Motion Lumbar Spine Active Degrees Testing Position Standing Flexion 55 Extension 10 Lateral Flexion Left 55 Lateral Flexion Right 59 Comments Lateral flexion measured in cm from fingertips to floor PT-OP-L Special Tests Start: 02/25/24 16:57 Freq: Status: Active Protocol: Document 02/25/24 16:15 DCW (Rec: 02/26/24 10:39 DCW [id number]) Special Tests Lumbar Spine Special Tests Vertical Spine Loading Test Results Negative Straight Leg Raise Test Results Positive L Slump Test Results Negative Compression Test Results Negative A-P Shearing Test Results Negative Hip Special Tests Piriformis Test Results Positive L WHITNEY Test Results Positive L PT-OP-M Strength Start: 02/25/24 16:57 Freq: Status: Active Protocol: Document 02/25/24 16:15 DCW (Rec: 02/26/24 10:39 DCW [id number]) Hip Strength Hip Manual Muscle Testing Right Flexion (L2) 4 Good Abduction 4 Good Adduction 4+ Good+ External Rotation 5 Normal Internal Rotation 5 Normal Comments Increased pain while testing left hip flexion and abduction Left Flexion (L2) 5 Normal Abduction 5 Normal Adduction 5 Normal External Rotation 5 Normal Internal Rotation 5 Normal Knee Strength Knee Manual Muscle Testing Right Flexion (S2) 4 Good Extension (L3) 5 Normal Left Flexion (S2) 4 Good Extension (L3) 5 Normal PT-OP-Q Treatments Start: 02/25/24 16:57 Freq: Status: Active Protocol: Document 02/27/24 13:03 SP (Rec: 02/27/24 13:51 SP [id number]) Therapeutic Exercises Supine Exercises Bridge Supine Exercise Name added to HEP /c HO Resistance TB #2 thighs Reps/Minutes 5 SH x10 Comments cued maintain abd Jules stretch Supine Exercise Name added to HEP /c HO Side bilateral Equipment Used opp LE KTC Reps/Minutes 60s Comments cued neutral pelvis active HS stretch Supine Exercise Name added to HEP /c HO Side left Reps/Minutes x20 reps Comments no pain Piriformis Supine Exercise Name Piriformis stretch Knee opposite shoulder, Figure-4 R leg straight Side left Reps/Minutes 30s Sidelying Exercises Hip Abduction Side bilateral Resistance AROM Reps/Minutes x10 Comments cued stacked on side, DF neutral ankle Other Exercises Self STMs Other Exercise Name Hip ERs: 1. hooklying 2. standing- added to HEp if needed on HO Equipment Used tennis ball over hip ERs: 1. hip IR/ER 2. ball wall rolling Reps/Minutes 15 sec Comments cued ed gentle pressure tolerance self massage Manual Therapy Treatment Consent Patient gave verbal consent for manual Yes treatment Soft Tissue Mobilization L hip Body Location piriformis, glut med, max Body Position RL SL Comments R SLpillows between BLEs : STMs and MWM clamshell Supported supine pillows under L thighs: STMs and MWM long axis hip IR/ER: TFL, prox quad , ITB Joint Mobilizations L hip Grade II Body Position Hooklying Comments strap inferolateral, inferior glide- didn't seem to make a reduction in tightness, felt more pressure under strap. Self-Care/Home Management Treatment Education Patient Education Body Mechanics,Joint Protection,Pain Management, Posture Other Education Ed use pillows sidesleeping between BLEs for hip and LB support, hooklying under prox thighs and knees to provide back and hip relaxed positioning without LB tension . Pt good response to propping with pillows during tx. PT-OP-T Assessment and Plan Start: 02/25/24 16:57 Freq: Status: Active Protocol: Document 02/27/24 13:03 SP (Rec: 02/27/24 13:51 SP [id number]) Physical Therapy Assessment Goals Two Impairment Pt presents with mod-severe tone in left piriformis Mcfp Goal (LTG) Pt to present with mild tone in left piriformis in order to desplay decreased radicular symptoms and improve functional mobility. LTG Duration 04/24/24 One Impairment Pt does not have an appropriate home exercise program Short Term Goal (STG) Pt to be independent and compliant with an appropriate HEP STG Duration 03/27/24 Assessment Summary Assessment Pt reports little sensitive over hip ERs but good tolerance manual, provided education on self use of ball wall rolling vs hooklying stationary over tennis ball hip IR/ER motion L posterolateral hip. Progressed home flexibility stretches: jules stretch R>L tightness, active HS stretch with APs with reports no adverse affects. Cued awareness of upright posture during mobility, tends to have flexed posture with head forward. Pt reports better understanding comfort supported sleeping positioning and use HOs for carryover home. Physical Therapy Plan Frequency and Duration Frequency of Treatment 2x/Week Plan of Care Start Date 02/25/24 Plan of Care End Date 04/24/24 Therapeutic Interventions Therapeutic Interventions Balance Training,Home Exercise Program,Joint Mobilizations, Manual Therapy,Neuromuscular Re-education,Patient/Caregiver Education,Self-Care/Home Management,Soft Tissue Mobilization,Therapeutic Activities,Therapeutic Exercises Modalities Cold Pack/Ice Massage,Electric Stimulation,Hot Packs, Ultrasound Next Visit Focus/Plan Next Note Type Treatment Note Next Visit Plan Recheck HEP stretching, progressed resisted bridge and side hip ABD. POC: STM, stretching/ flexibility, hip strengthening
--- NOTE | 2024-03-01 14:29 | PT.OTN ---
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 Pt notes that a left posterior hip and left LE ache is constant, and additionally has occasional shoot pain, numbness, or tingling along his left leg. Pain typically bothers him the most when getting up after sitting for an extended perior of time. Pt denies and pain along his low back. Prior Treatments and Tests Lumbar x-ray: IMPRESSION: Degenerative changes most severe at L5-S1. per Liza Baker M.D. on 01/27/2024 Treatment Goals Patient/Caregiver Goals Pt hoping to learn how to use stretching/exercise to mitigate flare-ups, and what to do in hopes to prevent future flare-ups. PT-OP-C Subjective Start: 02/25/24 16:57 Freq: Status: Active Protocol: Document 03/01/24 13:51 SP (Rec: 03/01/24 14:39 SP [id number]) OP-PT Subjective Patient Comments Patient Comments He reports feeling little longer duration time with less intense pain. No particular trigger of intense pain can identify. PT-OP-F Manual Assessment Start: 02/25/24 16:57 Freq: Status: Active Protocol: Document 02/25/24 16:15 DCW (Rec: 02/26/24 10:39 DCW [id number]) Manual Assessments Soft Tissue Assessment Soft Tissue Mobility Assessment Moderate-severe tone along left piriformis with tenderness to palpation 3/4: wincing and withdraw PT-OP-K Range of Motion Start: 02/25/24 16:57 Freq: Status: Active Protocol: Document 02/25/24 16:15 DCW (Rec: 02/26/24 10:39 DCW [id number]) Lumbar Spine Range of Motion Lumbar Spine Active Degrees Testing Position Standing Flexion 55 Extension 10 Lateral Flexion Left 55 Lateral Flexion Right 59 Comments Lateral flexion measured in cm from fingertips to floor PT-OP-L Special Tests Start: 02/25/24 16:57 Freq: Status: Active Protocol: Document 02/25/24 16:15 DCW (Rec: 02/26/24 10:39 DCW [id number]) Special Tests Lumbar Spine Special Tests Vertical Spine Loading Test Results Negative Straight Leg Raise Test Results Positive L Slump Test Results Negative Compression Test Results Negative A-P Shearing Test Results Negative Hip Special Tests Piriformis Test Results Positive L WHITNEY Test Results Positive L PT-OP-M Strength Start: 02/25/24 16:57 Freq: Status: Active Protocol: Document 02/25/24 16:15 DCW (Rec: 02/26/24 10:39 DCW [id number]) Hip Strength Hip Manual Muscle Testing Right Flexion (L2) 4 Good Abduction 4 Good Adduction 4+ Good+ External Rotation 5 Normal Internal Rotation 5 Normal Comments Increased pain while testing left hip flexion and abduction Left Flexion (L2) 5 Normal Abduction 5 Normal Adduction 5 Normal External Rotation 5 Normal Internal Rotation 5 Normal Knee Strength Knee Manual Muscle Testing Right Flexion (S2) 4 Good Extension (L3) 5 Normal Left Flexion (S2) 4 Good Extension (L3) 5 Normal PT-OP-Q Treatments Start: 02/25/24 16:57 Freq: Status: Active Protocol: Document 03/01/24 13:51 SP (Rec: 03/01/24 14:39 SP [id number]) Therapeutic Exercises Supine Exercises Jules stretch Supine Exercise Name reviewed Side bilateral Equipment Used opp LE KTC Reps/Minutes 60s Comments cued neutral pelvis active HS stretch Supine Exercise Name reviewed /c AP Side left Reps/Minutes x20 reps Comments no pain Sidelying Exercises Hip Abduction Sidelying Exercise Name added to HEP /c HO Side bilateral Resistance AROM Equipment Used both legs straight, wt into front top arm on table Reps/Minutes x10 Comments cued stacked on side, DF neutral ankle Sitting Exercises LAQ Sitting Exercise Name added to HEP /C HO Side bilateral Resistance Tb #2 at ankles/ under opp foot Reps/Minutes 2 Sh x10 Comments cued posture Piriformis stretch Sitting Exercise Name Seated Figure-4- HEP reviewed Side left Reps/Minutes 30 Sh stretch Standing Exercises band walk Standing Exercise Name lateral, fwd, bwd- added to HEP /c HO Side bilateral Resistance TB #2 at ankles Reps/Minutes 10 ft x3 laps Comments cued tall midline posture,abd strengthening Manual Therapy Treatment Consent Patient gave verbal consent for manual Yes treatment Soft Tissue Mobilization L hip Body Location L>R piriformis, glut med Body Position Prone Comments pillows under pelvis: STMs and MWM hip IR/ER, Contract relax into IR more than ER limited range. PT-OP-T Assessment and Plan Start: 02/25/24 16:57 Freq: Status: Active Protocol: Document 03/01/24 13:51 SP (Rec: 03/01/24 14:39 SP [id number]) Physical Therapy Assessment Goals Two Impairment Pt presents with mod-severe tone in left piriformis Care Home Goal (LTG) Pt to present with mild tone in left piriformis in order to desplay decreased radicular symptoms and improve functional mobility. LTG Duration 04/24/24 One Impairment Pt does not have an appropriate home exercise program Short Term Goal (STG) Pt to be independent and compliant with an appropriate HEP STG Duration 03/27/24 Assessment Summary Assessment Pt improved IR ROM cary, ER L after manual. REviewed self stretching for carryover tightness reducation and increased hip ROM. Pt good tolerance to progressed hip abd and quad strengthening side abd, band walk and LAQ against resistance with reports L hip soreness, R hip tiring 3x/wk for HEP /c HO. Physical Therapy Plan Frequency and Duration Frequency of Treatment 2x/Week Plan of Care Start Date 02/25/24 Plan of Care End Date 04/24/24 Therapeutic Interventions Therapeutic Interventions Balance Training,Home Exercise Program,Joint Mobilizations, Manual Therapy,Neuromuscular Re-education,Patient/Caregiver Education,Self-Care/Home Management,Soft Tissue Mobilization,Therapeutic Activities,Therapeutic Exercises Modalities Cold Pack/Ice Massage,Electric Stimulation,Hot Packs, Ultrasound Next Visit Focus/Plan Next Note Type Treatment Note Next Visit Plan Recheck HEP stretching, progressed resisted bridge, side hip ABD, band walk and LAQ. POC: STM, stretching/ flexibility, hip strengthening
--- NOTE | 2024-03-04 15:42 | PT.OTN ---
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 Pt notes that a left posterior hip and left LE ache is constant, and additionally has occasional shoot pain, numbness, or tingling along his left leg. Pain typically bothers him the most when getting up after sitting for an extended perior of time. Pt denies and pain along his low back. Prior Treatments and Tests Lumbar x-ray: IMPRESSION: Degenerative changes most severe at L5-S1. per Liza Baker M.D. on 01/27/2024 Treatment Goals Patient/Caregiver Goals Pt hoping to learn how to use stretching/exercise to mitigate flare-ups, and what to do in hopes to prevent future flare-ups. PT-OP-C Subjective Start: 02/25/24 16:57 Freq: Status: Active Protocol: Document 03/04/24 15:15 DCW (Rec: 03/04/24 15:42 DCW [id number]) OP-PT Subjective Patient Comments Patient Comments Muchmatter of fact. It was a pretty quick turn around. Has been quite compliant with HEP , admits to an occasional twinge, but nothing compared to what it was. PT-OP-F Manual Assessment Start: 02/25/24 16:57 Freq: Status: Active Protocol: Document 02/25/24 16:15 DCW (Rec: 02/26/24 10:39 DCW [id number]) Manual Assessments Soft Tissue Assessment Soft Tissue Mobility Assessment Moderate-severe tone along left piriformis with tenderness to palpation 3/4: wincing and withdraw PT-OP-K Range of Motion Start: 02/25/24 16:57 Freq: Status: Active Protocol: Document 02/25/24 16:15 DCW (Rec: 02/26/24 10:39 DCW [id number]) Lumbar Spine Range of Motion Lumbar Spine Active Degrees Testing Position Standing Flexion 55 Extension 10 Lateral Flexion Left 55 Lateral Flexion Right 59 Comments Lateral flexion measured in cm from fingertips to floor PT-OP-L Special Tests Start: 02/25/24 16:57 Freq: Status: Active Protocol: Document 02/25/24 16:15 DCW (Rec: 02/26/24 10:39 DCW [id number]) Special Tests Lumbar Spine Special Tests Vertical Spine Loading Test Results Negative Straight Leg Raise Test Results Positive L Slump Test Results Negative Compression Test Results Negative A-P Shearing Test Results Negative Hip Special Tests Piriformis Test Results Positive L WHITNEY Test Results Positive L PT-OP-M Strength Start: 02/25/24 16:57 Freq: Status: Active Protocol: Document 02/25/24 16:15 DCW (Rec: 02/26/24 10:39 DCW [id number]) Hip Strength Hip Manual Muscle Testing Right Flexion (L2) 4 Good Abduction 4 Good Adduction 4+ Good+ External Rotation 5 Normal Internal Rotation 5 Normal Comments Increased pain while testing left hip flexion and abduction Left Flexion (L2) 5 Normal Abduction 5 Normal Adduction 5 Normal External Rotation 5 Normal Internal Rotation 5 Normal Knee Strength Knee Manual Muscle Testing Right Flexion (S2) 4 Good Extension (L3) 5 Normal Left Flexion (S2) 4 Good Extension (L3) 5 Normal PT-OP-Q Treatments Start: 02/25/24 16:57 Freq: Status: Active Protocol: Document 03/04/24 15:15 DCW (Rec: 03/04/24 15:42 DCW [id number]) Manual Therapy Treatment Consent Patient gave verbal consent for manual Yes treatment Soft Tissue Mobilization L hip Body Location piriformis, glut med, hip flexor Body Position SL, Supine PT-OP-T Assessment and Plan Start: 02/25/24 16:57 Freq: Status: Active Protocol: Document 03/04/24 15:15 DCW (Rec: 03/04/24 15:42 DCW [id number]) Physical Therapy Assessment Impairments Impairments Activity Tolerance,Functional Activities,Functional Mobility ,Pain,Soft Tissue Mobility, Strength,Tone Goals Two Impairment Pt presents with mod-severe tone in left piriformis 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 LTG Duration Met One Impairment Pt does not have an appropriate home exercise program Short Term Goal (STG) Pt to be independent and compliant with an appropriate HEP STG Duration Met Progress Towards Goals Progress Towards Goals Goals Met Assessment Summary Assessment Pt feeling great, minimal lingering pain, notes understanding of independent HEP. Pt agreeable to discharge at this time, denies and further questions or concerns. Physical Therapy Plan Frequency and Duration Frequency of Treatment 2x/Week Plan of Care Start Date 02/25/24 Plan of Care End Date 04/24/24 Therapeutic Interventions Therapeutic Interventions Balance Training,Home Exercise Program,Joint Mobilizations, Manual Therapy,Neuromuscular Re-education,Patient/Caregiver Education,Self-Care/Home Management,Soft Tissue Mobilization,Therapeutic Activities,Therapeutic Exercises Modalities Cold Pack/Ice Massage,Electric Stimulation,Hot Packs, Ultrasound Discharge Physical Therapy Discharge Reasons Goals Met Next Visit Focus/Plan Next Note Type Discharge Summary
== END 2024-03-08 14:53 | disposition home or self-care (01) ==
LOC: PHYS 15:15
PROVIDERS: Family Provider Internal Medicine; PCP Internal Medicine; Referring Provider Internal Medicine; Visit Provider Internal Medicine
DX: M54.32 Sciatica, left side (principal); M25.652 Stiffness of left hip, not elsewhere classified; M25.69 Stiffness of other specified joint, not elsewhere classified
CPT/HCPCS: 97110; 97140; 97161

== ENCOUNTER → 2024-12-22 10:51 | Outpatient (CLI) | payer MEDICARE, SELFPAY ==
--- NOTE | 2024-12-22 10:51 | DI.RAD.S_ITS ---
PROCEDURE: XR KUB
== END ==
PROVIDERS: Family Provider Internal Medicine; PCP Internal Medicine; Referring Provider Nurse Practitioner Family; Visit Provider Nurse Practitioner Family
DX: R10.A2 Flank pain, left side (principal); G89.29 Other chronic pain
CPT/HCPCS: 74018

== ENCOUNTER → 2024-12-23 13:08 | Outpatient (CLI) | payer MEDICARE, SELFPAY ==
--- NOTE | 2024-12-23 13:09 | DI.CT.S_ITS ---
PROCEDURE: CT KIDNEY URETER BLADDER (KUB)
== END ==
PROVIDERS: Family Provider Internal Medicine; PCP Internal Medicine; Referring Provider Nurse Practitioner Family; Visit Provider Nurse Practitioner Family
DX: N13.2 Hydronephrosis with renal and ureteral calculous obstruction (principal); R10.A2 Flank pain, left side; M51.369 Other intervertebral disc degeneration, lumbar region without mention of lumbar back pain or lower extremity pain; M47.816 Spondylosis without myelopathy or radiculopathy, lumbar region
CPT/HCPCS: 74176

== ENCOUNTER 2024-12-28 14:21 | Emergency (ER) | payer MEDICARE, SELFPAY ==
[2024-12-28 14:26] VITALS: BP 151/89; PULSE 92; RESP 15; TEMP 36.8; O2SAT 100; BMI 23.3
--- NOTE | 2024-12-28 14:31 | DI.RAD.S_ITS ---
PROCEDURE: XR KUB INDICATIONS: kidney stone TECHNIQUE: One view of the abdomen acquired. COMPARISON: [facility], CR, XR KUB, 12/22/2024, 11:03. FINDINGS: Surgical changes and devices: None. Bowel: Bowel gas pattern is nonobstructive. No pneumoperitoneum. Soft tissues: No suspicious abdominal calcifications. Visualized solid organ contours appear normal in size. Bones: No suspicious bony lesions. IMPRESSION: No obvious renal calcifications are seen. Nonobstructive bowel gas pattern. No gross pneumoperitoneum. Dictated by: Michael Paredes M.D. on 12/28/2024 at 14:57 Approved by: Michael Paredes M.D. on 12/28/2024 at 14:58
--- NOTE | 2024-12-28 14:35 | ED_ITS ---
HPI - Male Genitourinary <Marcos Rocha PA-C - Last Filed: 12/28/24 18:12> General Chief complaint: Urogenital-Male Stated complaint: hydronephrosis, KD stone, PC ref Time Seen by Provider: 12/28/24 14:31 Source: patient Mode of arrival: Ambulatory History of Present Illness HPI Narrative: 69-year-old male with past medical history nephrolithiasis, hypertension, hyperlipidemia, asthma, anxiety, factor 5 Leiden, BPH presents to the ED with left sided flank pain for 11 days. Patient was seen by his PCP on 12/22/2024, diagnosed with a left-sided distal ureteral kidney stone that was 5.5 mm in size. Urine dip was negative at that time. Patient was encouraged to take tamsulosin, ibuprofen, plenty of hydration. Patient states that his symptoms have not improved, his pain has sometimes been a 10, right now in the ED his pain is at 7. Patient endorses urinary frequency. Patient endorses chills, nausea. No vomiting, fever, chest pain, shortness of breath, abdominal pain, dysuria, lightheadedness, dizziness, syncope. Patient is here in the ED since he is unable to see Urology due to troubles with a referral. Related Data Home Medications ?Medication ?Instructions ?Recorded ?Confirmed albuterol sulfate 90 mcg/actuation 2 puff inhalation Q 6H PRN 12/08/20 12/22/24 aerosol inhaler Previous Rx's ?Medication ?Instructions ?Recorded metronidazole 0.75 % topical cream 1 applic topical BE DTIME #45 grams 06/09/23 beclomethasone dipropionate 40 2 inh inhalation BID #3 1.8 grams 09/16/23 mcg/actuation HFA breath activated aerosol (Qvar RediHaler) alprazolam 0.5 mg tablet 0.5 mg PO TID PRN anxiety #3 0 tabs 10/21/23 atorvastatin 20 mg tablet 20 mg PO DAILY #90 tabs 01/17 tamsulosin 0.4 mg capsule 0.8 mg (2 x 0.4 mg) PO DAILY #180 08/31/24 caps losartan 100 0.5 tab PO DAILY #45 tabs mg-hydrochlorothiazide 12.5 mg tablet oxycodone-acetaminophen 5 mg-325 1 tab PO BID PRN pain #20 tabs 12/24/24 mg tablet (Percocet) ondansetron 4 mg disintegrating 4 mg PO Q8H PRN nausea and 12/28/24 tablet vomiting #14 tabs oxycodone-acetaminophen 5 mg-325 1 tab PO Q6H PRN pain #20 tabs 12/28/24 mg tablet (Percocet) Allergies Allergy/AdvReac Type Severity Reaction Status Date / Time No Known Drug Allergies Allergy Verified 12/28/24 14:26 Review of Systems <Marcos Rocha PA-C - Last Filed: 12/28/24 18:12> Constitutional Constitutional: Reports chills, Denies fatigue, Denies fever(s), Denies frequent falls, Denies lethargy and Denies weakness Eyes Eyes: Denies change in vision, Denies eye discharge, Denies irritation and Denies loss of vision ENT Ears, Nose, Mouth, and Throat: Denies change in voice, Denies dizziness, Denies neck pain, Denies sore throat and Denies throat swelling Cardiovascular Cardiovascular: Denies chest pain, Denies irregular heart rhythm, Denies lightheadedness, Denies palpitations, Denies dyspnea, Denies dyspnea on exertion and Denies orthopnea Respiratory Respiratory: Denies cough, Denies dyspnea, Denies dyspnea on exertion and Denies wheezing Gastrointestinal Gastrointestinal: Denies abdominal pain, Denies change in bowel habits, Denies diarrhea, Reports nausea and Denies vomiting Comments: L flank pain Genitourinary Genitourinary: Reports urinary frequency Musculoskeletal Musculoskeletal: Denies neck pain and Denies numbness Integumentary/Breasts Skin/Breast: Denies pruritus, Denies erythema, Denies rash and Denies wounds Neurologic Neurologic: Denies behavioral changes, Denies confusion, Denies dizziness, Denies frequent falls, Denies loss of vision, Denies numbness and Denies weakness Psychiatric Psychiatric: Denies anxiety, Denies behavioral changes, Denies confusion, Denies depression, Denies homicidal ideation and Denies suicidal ideation Endocrine Endocrine: Denies fatigue, Denies flushing and Denies palpitations Hematologic/Lymphatic Hematologic/Lymphatic: Denies easy bruising Allergic/Immunologic Allergic/Immunologic: Denies urticaria, Denies throat swelling and Denies wheezing Patient History <Marcos Rocha PA-C - Last Filed: 12/28/24 18:12> Medical History Depression Generalized anxiety disorder Chronic diarrhea History of adenomatous polyp of colon BPH w urinary obs/LUTS Acne Asthma Allergies Anxiety and depression (~1984) Carpal tunnel syndrome (~1994) Factor V Leiden Tinnitus (~1994) Kidney stones (~2020) Gastric ulcer Hyperlipidemia Hypertension Surgical History [place] teeth removed Anesthesia History of hernia repair History of tonsillectomy Family History Mother Lung cancer MVP (mitral valve prolapse) Grandfather History of heart disease Grandmother Cancer Grandmother Cancer Social History household members: spouse Smoking Status: Unknown if ever smoked alcohol intake frequency: 0-2 drinks per day Exam <Marcos Rocha PA-C - Last Filed: 12/28/24 18:12> Narrative Exam Narrative: Const General:?cooperative, healthy appearing and comfortable [facility] Head:?normal to inspection Ears:?hearing grossly normal bilaterally Nose:?external nose normal Face and sinus:?normal facial exam and sinuses nontender Mouth:?oral mucosae normal Throat:?posterior oropharynx normal Eyes General:?appearance normal, both eyes and all related structures Neck Neck:?normal visual inspection and no lymphadenopathy noted Resp Effort & Inspection:?normal respiratory effort Auscultation:?clear to auscultation bilaterally Cardio Rate:?regular rate Rhythm:?regular rhythm GI Abdomen is soft, nondistended, nontender to palpation. Neuro General:?patient alert, patient awake and patient oriented x3 Initial Vital Signs Initial Vital Signs: Vital Signs Temperature 98.2 F 12/28/24 14:26 Pulse Rate 92 H 12/28/24 14:26 Respiratory Rate 15 12/28/24 14:26 Blood Pressure 151/89 H 12/28/24 14:26 Pulse Oximetry 100 12/28/24 14:26 Oxygen Delivery Method Room Air 12/28/24 14:26 <Chris Soto MD - Last Filed: 12/30/24 09:14> Initial Vital Signs Initial Vital Signs: Vital Signs Temperature 98.2 F 12/28/24 14:26 Pulse Rate 92 H 12/28/24 14:26 Respiratory Rate 15 12/28/24 14:26 Blood Pressure 151/89 H 12/28/24 14:26 Pulse Oximetry 100 12/28/24 14:26 Oxygen Delivery Method Room Air 12/28/24 14:26 Course <Marcos Rocha PA-C - Last Filed: 12/28/24 18:12> Orders Ordered: Discontinued Medications Sodium Chloride (Normal Saline 0.9%) 1,000 mls @ 1,000 mls/hr IV BOLUS ONE Stop: 12/28/24 16:35 Last Infusion: 12/28/24 16:58 Dose: Infused Documented By: Admin: 12/28/24 15:57 Dose: 1,000 mls/hr Documented By: WILLIAM Ketorolac Tromethamine (Ketorolac 30 Mg/Ml Vial) 15 mg IV NOW ONE Stop: 12/28/24 14:32 Last Admin: 12/28/24 14:52 Dose: 15 mg Documented By: SHAYY Ondansetron HCl (Ondansetron 4 Mg/2 Ml Inj) 4 mg IV NOW ONE Stop: 12/28/24 14:32 Last Admin: 12/28/24 14:52 Dose: 4 mg Documented By: SHAYY Vital Signs Vital signs: Vital Signs - 8 hr 12/28/24 14:26 12/28/24 17:38 12/28/24 18:05 Temperature 98.2 F Pulse Rate 92 H 67 78 Respiratory Rate 15 18 Blood Pressure 151/89 H 148/69 H 132/89 Pulse Oximetry 100 98 99 Oxygen Delivery Method Room Air Room Air Room Air <Chris Soto MD - Last Filed: 12/30/24 09:14> Orders Ordered: Discontinued Medications Sodium Chloride (Normal Saline 0.9%) 1,000 mls @ 1,000 mls/hr IV BOLUS ONE Stop: 12/28/24 16:35 Last Infusion: 12/28/24 16:58 Dose: Infused Documented By: Admin: 12/28/24 15:57 Dose: 1,000 mls/hr Documented By: WILLIAM Ketorolac Tromethamine (Ketorolac 30 Mg/Ml Vial) 15 mg IV NOW ONE Stop: 12/28/24 14:32 Last Admin: 12/28/24 14:52 Dose: 15 mg Documented By: SHAYY Ondansetron HCl (Ondansetron 4 Mg/2 Ml Inj) 4 mg IV NOW ONE Stop: 12/28/24 14:32 Last Admin: 12/28/24 14:52 Dose: 4 mg Documented By: SHAYY Vital Signs Vital signs: Vital Signs - 8 hr 12/28/24 14:26 12/28/24 17:38 12/28/24 18:05 Temperature 98.2 F Pulse Rate 92 H 67 78 Respiratory Rate 15 18 Blood Pressure 151/89 H 148/69 H 132/89 Pulse Oximetry 100 98 99 Oxygen Delivery Method Room Air Room Air Room Air MDM - Male Genitourinary <Marcos Rocha PA-C - Last Filed: 12/28/24 18:12> Lab Data 12/28/24 14:37 12/28/24 14:37 Labs: Lab Results 12/28/24 12/28/24 Range/Units 14:37 14:50 WBC 6.1 (4.5-11.0) X10^3/uL RBC 4.25 L (4.5-5.9) X10^6/uL Hgb 13.4 L (13.5-17.5) g/dL Hct 38.7 L (41-53) % MCV 91.2 (80-100) fL MCH 31.5 (26-34) PG MCHC 34.5 (30-36) % RDW 13.2 (11.6-14.8) % Plt Count 174 (150-400) X10^3/uL Neut % (Auto) 74.6 (50-75) % Lymph % (Auto) 16.2 L (25-40) % Dickinson % (Auto) 5.9 (3-14) % Eos % (Auto) 2.9 (2-4) % Baso % (Auto) 0.4 (0-2) % Neut # (Auto) 4600 (5129-4809) /uL Lymph # (Auto) 1000 L (6312-5819) /uL Dickinson # (Auto) 400 (0-900) /uL Eos # (Auto) 200 (0-450) /uL Baso # (Auto) 0 (0-100) /uL Sodium 143 (137-145) mmol/L Potassium 4.3 (3.4-5.1) mmol/L Chloride 105 (98-107) mmol/L Carbon Dioxide 23 (22-32) mmol/L BUN 40 H (9-20) mg/dL Creatinine 1.53 H (0.66-1.25) mg/dL Estimated GFR 49 L (>60) mL/min BUN/Creatinine Ratio 26.1 H (6-22) Glucose 93 (70-99) mg/dL Calcium 8.9 (8.4-10.2) mg/dL Total Bilirubin 0.6 (0.2-1.3) mg/dL AST 28 (17-59) IU/L ALT 28 (<50) IU/L Alkaline Phosphatase 63 (38-126) U/L Total Protein 7.4 (6.3-8.2) g/dL Albumin 4.5 (3.5-5.0) g/dL Globulin 2.9 (1.7-4.1) g/dL Albumin/Globulin Ratio 1.6 (1.0-2.8) Lipase 422 H (23-300) U/L Urine RBC 0-1/hpf D (0-5/HPF) Urine WBC 1-5/hpf (0-5/HPF) Ur Squamous Epith Cells 0-1 /hpf (0-5/HPF) Urine Bacteria Occasional (0-1) (None) WBC Casts 0-1/lpf (None) Ur Culture Indicated? Cult not indicated Vol Urine Centrifuged 10ml (spun) Urine Dip Bedside Urine Glucose Negative Bedside Urine Bilirubin - Negative Bedside Urine Ketone - Negative Urine Specific [place] 1.025 Bedside Urine Occult Blood + Bedside Urine pH 6 Bedside Urine Protein - Negative Bedside Urine Urobilinogen - Negative Bedside Urine Nitrite - Negative Bedside Urine Leukocytes - Negative Esterase MDM Narrative Medical decision making narrative: 69-year-old male with past medical history nephrolithiasis, hypertension, hyperlipidemia, asthma, anxiety, factor 5 Leiden, BPH presents to the ED with left sided flank pain for 11 days. Concern for obstructing kidney stone versus UTI versus hydronephrosis versus other intra-abdominal pathology versus other. Will obtain labs, urinalysis, KUB x-ray. Will give Toradol, Zofran. Will reassess. Patient's symptoms improved with Toradol and Zofran, IV fluids. Labs are notable for an NICOLAS with creatinine 1.53, reduced GFR of 49. Patient's baseline of creatinine is 1.06 from last year, GFR greater than 60. All other labs unremarkable. UA negative for infection. CT scan shows a 4 mm stone in the left UVJ with mild to moderate left-sided hydronephrosis and hydroureter. No right-sided renal stones or hydronephrosis. Normal-appearing urinary bladder. Enlarged prostate gland. Dr. Kat from Urology was consulted. He will see the patient in clinic. Will discharge patient home with pain and nausea control. Discussed findings and plan with patient. He is agreeable to the plan. ED return precautions discussed with patient. Patient verbalized understanding. Medical records reviewed: Yes <Chris Soto MD - Last Filed: 12/30/24 09:14> Lab Data Labs: Lab Results 12/28/24 12/28/24 Range/Units 14:37 14:50 WBC 6.1 (4.5-11.0) X10^3/uL RBC 4.25 L (4.5-5.9) X10^6/uL Hgb 13.4 L (13.5-17.5) g/dL Hct 38.7 L (41-53) % MCV 91.2 (80-100) fL MCH 31.5 (26-34) PG MCHC 34.5 (30-36) % RDW 13.2 (11.6-14.8) % Plt Count 174 (150-400) X10^3/uL Neut % (Auto) 74.6 (50-75) % Lymph % (Auto) 16.2 L (25-40) % Dickinson % (Auto) 5.9 (3-14) % Eos % (Auto) 2.9 (2-4) % Baso % (Auto) 0.4 (0-2) % Neut # (Auto) 4600 (7937-2118) /uL Lymph # (Auto) 1000 L (6082-7624) /uL Dickinson # (Auto) 400 (0-900) /uL Eos # (Auto) 200 (0-450) /uL Baso # (Auto) 0 (0-100) /uL Sodium 143 (137-145) mmol/L Potassium 4.3 (3.4-5.1) mmol/L Chloride 105 (98-107) mmol/L Carbon Dioxide 23 (22-32) mmol/L BUN 40 H (9-20) mg/dL Creatinine 1.53 H (0.66-1.25) mg/dL Estimated GFR 49 L (>60) mL/min BUN/Creatinine Ratio 26.1 H (6-22) Glucose 93 (70-99) mg/dL Calcium 8.9 (8.4-10.2) mg/dL Total Bilirubin 0.6 (0.2-1.3) mg/dL AST 28 (17-59) IU/L ALT 28 (<50) IU/L Alkaline Phosphatase 63 (38-126) U/L Total Protein 7.4 (6.3-8.2) g/dL Albumin 4.5 (3.5-5.0) g/dL Globulin 2.9 (1.7-4.1) g/dL Albumin/Globulin Ratio 1.6 (1.0-2.8) Lipase 422 H (23-300) U/L Urine RBC 0-1/hpf D (0-5/HPF) Urine WBC 1-5/hpf (0-5/HPF) Ur Squamous Epith Cells 0-1 /hpf (0-5/HPF) Urine Bacteria Occasional (0-1) (None) WBC Casts 0-1/lpf (None) Ur Culture Indicated? Cult not indicated Vol Urine Centrifuged 10ml (spun) Urine Dip Bedside Urine Glucose Negative Bedside Urine Bilirubin - Negative Bedside Urine Ketone - Negative Urine Specific [place] 1.025 Bedside Urine Occult Blood + Bedside Urine pH 6 Bedside Urine Protein - Negative Bedside Urine Urobilinogen - Negative Bedside Urine Nitrite - Negative Bedside Urine Leukocytes - Negative Esterase Discharge Plan Departure Patient Disposition: Home Clinical Impression: Kidney stone Instructions: DI for Kidney Stones Activity Restrictions/Additional Instructions: You were evaluated in the emergency department today for a kidney stone. Your urine is not infected. The CT scan does show a 4 mm left-sided kidney stone that is causing your symptoms. Your labs do show a slight dip in kidney function due to this. Dr. Kat from Urology was consulted, he will be calling you to make an appointment at his clinic in the next day or 2. If you do not hear from them, you may call [facility] at [phone]. In the meanwhile, you are being prescribed pain medication and anti nausea medication to take as needed. Please continue taking the tamsulosin and ensure good hydration. Return to the ED if you have worsening symptoms. Prescriptions: New oxycodone-acetaminophen [Percocet] 5-325 mg tablet 1 tab PO Q6H PRN (Reason: pain) Qty: 20 0RF ondansetron 4 mg tablet,disintegrating 4 mg PO Q8H PRN (Reason: nausea and vomiting) Qty: 14 0RF No Action metronidazole 0.75 % cream 1 applic topical BEDTIME Qty: 45 1RF Qvar RediHaler 40 mcg/actuation HFA aerosol breath activated 2 inh inhalation BID Qty: 31.8 3RF alprazolam 0.5 mg tablet 0.5 mg PO TID PRN (Reason: anxiety) Qty: 30 0RF atorvastatin 20 mg tablet 20 mg PO DAILY Qty: 90 3RF tamsulosin 0.4 mg capsule 0.8 mg PO DAILY Qty: 180 1RF losartan-hydrochlorothiazide 100-12.5 mg tablet 0.5 tab PO DAILY Qty: 45 3RF oxycodone-acetaminophen [Percocet] 5-325 mg tablet 1 tab PO BID PRN (Reason: pain) Qty: 20 0RF albuterol sulfate 90 mcg/actuation HFA aerosol inhaler 2 puff inhalation Q6H PRN Referrals: Rudy Clemente MD [Primary Care Provider, Internal Medicine] Stand Alone Forms: Patient Portal/API ED Sign-out <Chris Soto MD - Last Filed: 12/30/24 09:14> [facility] I was immediately available in the department for consultation. This documentation has been reviewed and I agree with assessment and plan. Supervised by Chris Soto MD
[2024-12-28 14:45] LABS: Add Manual Diff / Slide Review NO; Hematocrit 38.7 % (41-53); Hemoglobin 13.4 g/dL (13.5-17.5); Lymphocytes Absolute Auto 1000 /uL (1100-4500); Mean Corpuscular HGB Conc 34.5 % (30-36); Mean Corpuscular Hemoglobin 31.5 PG (26-34); Mean Corpuscular Volume 91.2 fL (80-100); Platelet Count 174 X10^3/uL (150-400)
[2024-12-28] MEDS: ONDANSETRON 4 MG/2 ML INJ IV (14:52)
[2024-12-28] MEDS: KETOROLAC 30 MG/ML VIAL 15 MG IV (14:52)
[2024-12-28 15:03] LABS: Alanine Aminotransferase 28 IU/L (<50); Albumin 4.5 g/dL (3.5-5.0); Albumin Globulin Ratio 1.6 (1.0-2.8); Alkaline Phosphatase 63 U/L (38-126); Blood Urea Nitrogen 40 mg/dL (9-20); Calcium 8.9 mg/dL (8.4-10.2); Carbon Dioxide 23 mmol/L (22-32); Chloride 105 mmol/L (98-107); Estimated Glomerular Filt Rate 49 mL/min (>60); Globulin 2.9 g/dL (1.7-4.1); Glucose 93 mg/dL (70-99); HEMOLYSIS < 15 (0-50); Lipase 422 U/L (23-300); Potassium 4.3 mmol/L (3.4-5.1); Sodium 143 mmol/L (137-145); Total Protein 7.4 g/dL (6.3-8.2)
--- NOTE | 2024-12-28 15:35 | DI.CT.S_ITS ---
PROCEDURE: CT CHEST ABD PEL W CON INDICATIONS: hx kidney stones,sob TECHNIQUE: After the administration of intravenous contrast, 5 mm thick sections acquired from the lung apices to the symphysis. 5 mm coronal and sagittal reformats were performed, with additional 7 mm MIP reformats through the lungs. For radiation dose reduction, the following was used: automated exposure control, adjustment of mA and/or kV according to patient size. COMPARISON: [facility], CT, CT KIDNEY URETER BLADDER (KUB), 12/23/2024, 13:18. FINDINGS: Image quality: Excellent. CHEST: Lower Neck: No enlarged lymph nodes. Thyroid: No thyroid nodules which require sonographic follow up, per consensus guidelines. Axillae: No enlarged lymph nodes. Chest Wall: Unremarkable. Lungs and Pleura: No pneumothorax or pleural effusions. Biapical scarring. Multiple calcified granuloma are seen scattered in periphery of bilateral lung hammond No consolidation or suspicious nodules. Heart: Heart size is normal. No pericardial effusion. Thoracic Vessels: The aorta and pulmonary arteries demonstrate normal size. 2 vessel coronary artery atherosclerotic calcifications are seen. Mediastinum and Martina: No enlarged lymph nodes. Esophagus: No wall thickening. Small hiatal hernia. ABDOMEN: Liver: No solid mass. Hypodensities are seen involving inferior aspect of right hepatic lobe which may represent [place] cysts or hemangioma. Gallbladder: Contracted gallbladder. No gross calcified gallstones or gallbladder wall thickening. Biliary ducts: No biliary dilation. Pancreas: No ductal dilation. Spleen: Size is within normal limits. Adrenal Glands: No adrenal nodules. Kidneys and Ureters: There is [id number] left-sided hydronephrosis and hydroureter. 4 mm stone is noted in left UVJ series 2, image 196. No right- sided hydronephrosis or hydroureter. No solid mass. No complex renal cystic lesion which requires follow up. Stomach and Bowel: Normal colonic caliber, without significant wall thickening. No abscess collection. No evidence of acute appendicitis or diverticulitis. Peritoneum: No abnormal intraperitoneal fluid. No free air. Ventral Wall: No significant ventral hernia. Abdominal Nodes: No retroperitoneal or mesenteric adenopathy by size criteria. Vessels: Aorta and inferior vena cava are normal in size. PELVIS: Pelvic Organs: Enlarged prostate gland.. Bladder: No bladder wall thickening, accounting for underdistention. Pelvic Nodes: No enlarged lymph nodes. Miscellaneous: small bilateral inguinal hernia are seen containing fat only. Bones: No aggressive osseous abnormality. IMPRESSION: 1. 4 mm left UVJ stone with [id number] left-sided hydronephrosis and hydroureter. No right-sided renal stones or hydronephrosis. Normal appearing urinary bladder. 2. Enlarged prostate gland. 3. Calcified granuloma scattered in bilateral lung hammond. No focal infiltrate, pleural effusion or pneumothorax. 4. Moderate 2 vessel coronary artery atherosclerotic calcifications. Small hiatal hernia. No mediastinal or hilar lymphadenopathy. 5. Other chronic findings as detailed above. Dictated by: Michael Paredes M.D. on 12/28/2024 at 16:00 Approved by: Michael Paredes M.D. on 12/28/2024 at 16:06
[2024-12-28 15:39] LABS: Culture Indicated Urine Cult Not Indicated
[2024-12-28] MEDS: SODIUM CHLORIDE 0.9% 1,000 ML 1000 ML IV (15:57)
[2024-12-28 17:38] VITALS: BP 148/69; PULSE 67; O2SAT 98
[2024-12-28 18:05] VITALS: BP 132/89; PULSE 78; RESP 18; O2SAT 99
== END 2024-12-28 18:12 | disposition home or self-care (01) ==
PROVIDERS: Emergency Provider Student in an Organized Health Care Education/Training Program; Family Provider Internal Medicine; PCP Internal Medicine
DX: N20.0 Calculus of kidney (principal); Z87.442 Personal history of urinary calculi
CPT/HCPCS: 36415; 71260; 74018; 74177; 80053; 81003; 81015; 83690; 85025; 96361; 96374; 96375; 99284; J1885; J2405; J7030

== ENCOUNTER → 2025-01-07 06:57 | Outpatient (CLI) | payer MEDICARE, SELFPAY ==
--- NOTE | 2025-01-07 06:59 | DI.CT.S_ITS ---
PROCEDURE: CT PEL WO CON INDICATIONS: 69 y/o M w/ 5mm left UVJ calculus, eval for passage TECHNIQUE: Noncontrast 3 mm axial sections acquired through the bony pelvis, with coronal and sagittal reformatting. COMPARISON: [facility], CT, CT CHEST ABD PEL W CON, 12/28/2024, 15:50. FINDINGS: Image quality: Diagnostic Lower abdomen: No bowel obstruction. No drainable ascites Bladder: No calcified bladder stone is seen. Prior left UVJ stone is not present today Reproductive organs: Heterogeneous prostate with calcifications not well assessed on this study Rectum: Unremarkable Vessels and lymph nodes: Mild aortoiliac atherosclerotic calcifications. Pelvic wall: Small fat containing inguinal hernias Bones: There are degenerative osseous changes. IMPRESSION: Prior left UVJ stone is not present today. No calcified bladder stone. Dictated by: Krystian Weaver M.D. on 01/08/2025 at 7:42 Approved by: Krystian Weaver M.D. on 01/08/2025 at 7:44
== END ==
LOC: CT 06:58
PROVIDERS: PCP Internal Medicine; Referring Provider Urology; Visit Provider Urology
DX: N20.1 Calculus of ureter (principal)
CPT/HCPCS: 72192